=== PATIENT | female | born 1960 | race Caucasian/White ===

== ENCOUNTER 2020-02-09 21:27 | Inpatient (IN) ==
[2020-02-09] MEDS ORDERED: ASPIRIN ONE (21:44)
[2020-02-09] MEDS ORDERED: ASPIRIN PO ONE (21:48)
[2020-02-09 21:57] LABS: BE 1.8 mmoll (-3.0-3.0); BLOOD TYPE ARTERIAL; HCO3-(ACT) 26.1 mmoll (20.0-26.0); METHB 0.9 % (0.0-1.5); O2(CT) 18.1 mL/dL (15.0-23.0); PCO2(98.6) 37 mmHg (35-45); PO2(98.6) 54 mmHg (60-100); SAMPLE BLOOD; SAO2 92.1 % (95.0-100.0); THB 14.4 g/dL (11.5-17.4); pH(98.6) 7.45 (7.35-7.45)
[2020-02-09 22:00] LABS: ALLEN TEST YES; MODALITY ROOM AIR; O2HB 89.5 % (95.0-99.0)
[2020-02-09 22:01] LABS: BASO# 0.07 X1000 (0.0-0.2); BASO% 0.6 % (0.0-0.8); EOS# 0.11 X1000 (0.0-0.7); EOS% 0.9 % (0.0-10.0); HEMATOCRIT 42.5 % (37.0-47.0); HEMOGLOBIN 13.9 g/dL (12.0-16.0); IMM GRAN# 0.03 X1000 (0.0-0.04); IMM GRAN% 0.3 % (0.0-0.5); LYMPH# 1.73 X1000 (1.2-3.4); LYMPH% 14.6 % (20.5-51.1); MCH 28.4 PG (27-31); MCHC 32.7 g/dL (33-37); MCV 86.9 FL (81-99); MONO# 0.89 X1000 (0.11-0.59); MONO% 7.5 % (1.7-9.3); MPV 11.5 FL (7.4-10.4); NEUT# 9.03 X1000 (1.4-6.5); NEUT% 76.1 % (42.2-75.2); PLT 263 X1000 (130-400); RBC 4.89 XMIL (4.2-5.4); RDW 14.5 % (11.5-14.5); WBC 11.86 X1000 (4.8-10.8)
[2020-02-09 22:18] LABS: AGAP 16; ALBUMIN 4.4 g/dL (3.5-5.0); ALKALINE PHOSPHATASE 54 U/L (32-104); BUN 9 mg/dL (8-22); CALCIUM 9.1 mg/dL (8.8-10.2); CHLORIDE 99 mmol/L (98-107); CK PROFILE 146 U/L (24-173); COSMO 273; CREATININE 0.5 mg/dL (0.5-0.9); ESTIMATED GFR > 60; GLUCOSE 139 mg/dL (70-104); GOT 24 U/L (10-30); GPT 14 U/L (10-36); POTASSIUM 4.6 mmol/L (3.5-5.1); SODIUM 136 mmol/L (136-145); TCO2 21 mmol/L (25-35); TOTAL PROTEIN 7.5 g/dL (6.3-8.3)
[2020-02-09 22:21] LABS: INR 0.88; PROTIME 12.4 Seconds (11.0-16.0)
[2020-02-09 22:22] LABS: PTT 24.7 Seconds (22.3-41.8)
[2020-02-09] MEDS ORDERED: LOVENOX 1 MG/KG SUBQ ONE (22:39)
[2020-02-09] MEDS ORDERED: LOVENOX SUBQ ONE (22:43)
--- NOTE | 2020-02-09 23:54 | PROVIDER DOCUMENTATION ---
This chart was entered by Natalie Cartagena Scribe, acting as scribe for Malachi Mayers MD. HPI-Respiratory General - General Chief Complaint: Shortness of Breath Stated Complaint: SOB Time Seen by Provider: 02/09/20 21:44 Source: patient, family () Allergies/Adverse Reactions: Patient Allergies Allergy/AdvReac Type Severity Reaction Status Date / Time demeclocycline HCl * Allergy Intermediate Unknown Verified 02/09/20 21:35 [From Declomycin] Home Medications: Home Medication List Medication Instructions Recorded Confirmed Last Taken Type Ca Citrate/Mgox/Vit D3/B6/Min 1 each PO DAILY 05/08/13 02/09/20 11/20/14 12:00 History [Citracal Plus Tablet] Levothyroxine [Synthroid] 125 microgm PO DAILY 05/08/13 02/09/20 11/21/14 05:00 History Sertraline HCl [Zoloft] 100 mg PO DAILY 05/08/13 02/09/20 11/21/14 21:00 History Dexchlorpheniram/Phenylephrine 1 tab PO DAILY 02/09/20 02/09/20 Unknown History [Rymed Tablet] Estradiol [Estrace] 1 tab PO DAILY 02/09/20 02/09/20 Unknown History Fluticasone 50 Mcg Nasal [place] 1 spray INH DAILY 02/09/20 02/09/20 Unknown History [Flonase] Meloxicam 1 tab PO DAILY 02/09/20 02/09/20 Unknown History - History of Present Illness-Resp Nature of Presenting Problem: 59 yowf presents to [facility] via pov with . she reports she was walking down her hallway when she had acute onset of nausea and sob. pt fell to the ground on her hands and knees and her came and heped her to the recliner. pt denies vomiting and denies chest pain. pt recently returned from [place] 2 weeks prior to tonights episode. reports once in the chair she had another brief episode with the same sx. they checked her O2 at home and he says it was at 81% on RA and HR was in 150's Quality of Pain: reports: none Severity in ED: reports: moderate Onset/Duration: reports: just prior to arrival Timing: reports: improving Cough Quality/Degree: reports: no cough Episode Frequency: no prior episodes Current Respiratory Medication Therapy: Initiated see nurses note Associated Symptoms: reports: shortness of breath, other (nausea). denies: chest pain/soreness, cough Similar Symptoms Previously?: No Recently seen or treated by another doctor?: No Review of Systems - Adult - REVIEW OF SYSTEMS - ADULT Constitutional: denies: chills, fever Eyes: reports: no symptoms reported Ears, Nose, Mouth & Throat: reports: no symptoms reported Cardiovascular: denies: chest pain, edema, palpitations Respiratory: reports: see HPI, shortness of breath. denies: cough, wheezing Gastrointestinal: reports: nausea. denies: abdominal pain, diarrhea, vomiting Genitourinary: reports: no symptoms reported Musculoskeletal: reports: no symptoms reported Integumentary: reports: no symptoms reported Neurological: reports: no symptoms reported Psychiatric: reports: no symptoms reported Endocrine: reports: no symptoms reported Hematologic/Lymphatic: reports: no symptoms reported Allergic/Immunologic: reports: no symptoms reported All Other Systems: Reviewed and Negative Past History - Adult - PAST MEDICAL HISTORY-ADULT Review of Records: reports: Old Records Reviewed, Nursing Assessment Review, Medications Reviewed, Social history reviewed & non-contributory. Major Childhood Illnesses: reports: denies history Cardiovascular: reports: denies history Respiratory: reports: denies history Gastrointestinal: reports: denies history Obstetrical/Gynecological: reports: denies history Genitourinary: reports: denies history Musculoskeletal: reports: denies history Neurological: reports: denies history Psychiatric: reports: depression Endocrine/Immune: reports: thyroid disorder Other Conditions: reports: denies history - PRIOR SURGERIES/PROCEDURES Surgical/Procedure History: reports: other (thyroid removed) - IMMUNIZATION STATUS Childhood Immunizations: See Nurse Assessment Flu Vaccine: See Nurse Assessment - FAMILY HISTORY Family History: reviewed, not pertinent - SOCIAL HISTORY Smoking: denies Substance Use: denies Living Situation: family Physical Exam-General - PHYSICAL EXAM-ADULT Initial Vital Signs Reviewed: Yes - CONSTITUTIONAL General Appearance: appears well (nontoxic in appearance), alert, mild distress, obese - EYES Eyes: PERRL/EOMI, pink conjunctivae - HEAD, EARS, NOSE, MOUTH & THROAT HENMT: moist mucous membranes - NECK Neck: non-tender, full range of motion, supple, normal inspection - RESPIRATORY Respiratory: chest non-tender, lungs clear, respiratory distress (mild) - CARDIOVASCULAR Cardiovascular: normal peripheral pulses, tachycardia (125) - CHEST (BREASTS) Chest/Breast: deferred - GASTROINTESTINAL (ABDOMEN) Abdominal Exam: normal bowel sounds, non tender, soft, other (c/o nausea) - GENITOURINARY Female Genitalia/Pelvic Exam: deferred Rectal Exam: deferred Hemoccult Exam: deferred - LYMPHATIC Lymphatic: no adenopathy - MUSCULOSKELETAL Back Exam: no CVA tenderness, no vertebral tenderness Extremity: normal range of motion, non-tender, normal gait, normal inspection, normal capillary refill, pelvis stable - SKIN Integumentary: normal color, normal turgor, warm/dry - NEUROLOGIC Neurologic: grossly normal - PSYCHIATRIC Psych/Mental Status: normal mood/affect, normal thought content, normal thought process, oriented x 3 Progress - PLAN OF CARE/RESULTS Progress/Plan/Lab Results: Vital Signs - 8 hr 02/09/20 21:30 02/09/20 21:45 02/09/20 22:00 Temperature 97.9 F Pulse Rate 125 H 119 H 113 H Respiratory Rate 18 18 17 Blood Pressure 122/84 142/100 142/101 O2 Sat by Pulse Oximetry 91 L 89 L 92 L Laboratory Results - last 24 hr 02/09/20 02/09/20 02/09/20 21:04 21:04 21:04 WBC RBC Hgb Hct MCV MCH MCHC RDW Std Deviation Plt Count MPV Immature Gran % (Auto) Neut % (Auto) Lymph % (Auto) [place] % (Auto) Eos % (Auto) Baso % (Auto) Immature Gran # (Auto) Neut # (Auto) Lymph # (Auto) [place] # (Auto) Eos # (Auto) Baso # (Auto) PT INR PTT (Actin FS) D-Dimer, Quantitative Specimen Type Sample Site pH pCO2 pO2 HCO3 Base Excess Oxyhemoglobin ABG O2 Sat (Calculated) ABG O2 Saturation ABG Carboxyhemoglobin ABG Methemoglobin Jett Test A-a O2 Difference Total Hemoglobin Lactate Blood Gas Modality FiO2 % Sodium 136 Potassium 4.6 Chloride 99 Carbon Dioxide 21 L Anion Gap 16 BUN 9 Creatinine 0.5 Estimated GFR/1.73 m2 > 60 BUN/Creatinine Ratio 18 Glucose 139 H Calculated Osmolality 273 Calcium 9.1 Total Bilirubin 0.30 AST 24 ALT 14 Alkaline Phosphatase 54 Creatine Kinase 146 Troponin T High Sens 450 H* Total Protein 7.5 Albumin 4.4 Globulin 3.0 Albumin/Globulin Ratio 1.0 Plasma Lactate 1.6 02/09/20 02/09/20 02/09/20 21:04 21:04 21:42 WBC 11.86 H RBC 4.89 Hgb 13.9 Hct 42.5 MCV 86.9 MCH 28.4 MCHC 32.7 L RDW Std Deviation 14.5 Plt Count 263 MPV 11.5 H Immature Gran % (Auto) 0.3 Neut % (Auto) 76.1 H Lymph % (Auto) 14.6 L [place] % (Auto) 7.5 Eos % (Auto) 0.9 Baso % (Auto) 0.6 Immature Gran # (Auto) 0.03 Neut # (Auto) 9.03 H Lymph # (Auto) 1.73 [place] # (Auto) 0.89 H Eos # (Auto) 0.11 Baso # (Auto) 0.07 PT 12.4 INR 0.88 PTT (Actin FS) 24.7 D-Dimer, Quantitative 10.75 H Specimen Type ARTERIAL Sample Site R BRACHIAL pH 7.45 pCO2 37 pO2 54 L HCO3 26.1 H Base Excess 1.8 Oxyhemoglobin 89.5 L* ABG O2 Sat (Calculated) 18.1 ABG O2 Saturation 92.1 L ABG Carboxyhemoglobin 2.00 ABG Methemoglobin 0.9 Jett Test YES A-a O2 Difference 49.0 Total Hemoglobin 14.4 Lactate 1.50 Blood Gas Modality ROOM AIR FiO2 % 21.0 Sodium Potassium Chloride Carbon Dioxide Anion Gap BUN Creatinine Estimated GFR/1.73 m2 BUN/Creatinine Ratio Glucose Calculated Osmolality Calcium Total Bilirubin AST ALT Alkaline Phosphatase Creatine Kinase Troponin T High Sens Total Protein Albumin Globulin Albumin/Globulin Ratio Plasma Lactate Orders Category Date Time Status Cardiac Monitoring NOW Care 02/09/20 21:42 Active IV Insertion NOW Care 02/09/20 21:42 Completed Isolation Precautions Setup NOW Care 02/09/20 21:51 Active NEWS Score >or=5:Order NEWS Bundle S.O. NOW Care 02/09/20 21:34 Active Notify Provider of NEWS Score NOW Care 02/09/20 21:42 Active CHEST-1 VIEW [RAD] Stat Exams 02/09/20 21:42 Taken CTA [CT ANGIOGRM PULMONARY ARTERIES] [CT] Stat Exams 02/09/20 22:39 Taken ABG [RESP] Routine Lab 02/09/20 21:42 Completed BLOOD CULTURE [BLDCUL] Stat Lab 02/09/20 22:02 Ordered CBC WITH DIFF [HEME] Stat Lab 02/09/20 21:04 Completed CK PROFILE [SP CHEM] Stat Lab 02/09/20 21:04 Completed COMPREHENSIVE METABOLIC PANEL [CHEM] Stat Lab 02/09/20 21:04 Completed D-DIMER [COAG] Stat Lab 02/09/20 21:04 Completed LACTATE, PLASMA [CHEM] Lab 02/10/20 00:45 Uncollected LACTATE, PLASMA [CHEM] Lab 02/10/20 03:45 Uncollected LACTATE, PLASMA [CHEM] Q3H Lab 02/09/20 21:04 Completed PROTIME WITH INR [COAG] Stat Lab 02/09/20 21:04 Completed PTT [COAG] Stat Lab 02/09/20 21:04 Completed TROPONIN T HIGH SENSITIVITY Stat Lab 02/09/20 21:04 Completed TROPONIN T HIGH SENSITIVITY Stat Lab 02/09/20 23:30 Ordered URINALYSIS W/POSS RFLX CULT [URINALYSIS] Stat Lab 02/09/20 21:42 Uncollected Aspirin Med 02/09/20 21:44 Discontinued 325 mg .ROUTE .STK-MED ONE Aspirin Med 02/09/20 21:48 Discontinued 325 mg PO NOW ONE Enoxaparin [Lovenox] Med 02/09/20 22:43 Discontinued 80 mg SUBQ NOW ONE O2 Per Protocol Stat Oth 02/09/20 21:42 Active Result Diagrams: 02/09/20 21:04 02/09/20 21:04 - REASSESSMENT Reassessment #1 Time Reassessed: 22:30 Status: unchanged Reassessment Comment: dr mayers at bedside - EKG 1 Time of EKG reading by physician:: 21:39 EKG Read and Signed by:: Malachi Mayers EKG Interpretation (*Must complete 3 of following elements*): Abnormal Rate: 121 Rhythm: sinus tachycardia Reese: normal QRS: normal PA Interval: normal Comments: nonspecific ST abnormality 2 Time of EKG reading by physician:: 22:31 EKG Read and Signed by:: Malachi Mayers EKG Interpretation (*Must complete 3 of following elements*): Abnormal Rate: 117 Rhythm: sinus tachycardia Reese: normal QRS: normal PA Interval: normal ST Wave: normal Comments: cannot rule out anteior infarct, age undetemined - XRAY 1 XRAY: Bilateral XRAY Study: Chest Impression: See EMR Report - CT/MRI 1 CT Study: Angiogram Impression: See EMR Report - CONSULTS/PCP/HOSPITALIST Notification #1 *Consult/PCP/Hospitalist*: dr clark cardio Time Discussed: 22:33 Reason/Comments: phone consult #2 Consult: dr clark cardio Time Discussed: 23:43 Reason/Comments: giving results of ct #3 Consult: hospitalist @ [facility] Consult Disposition: Admit Departure - Departure Date of Disposition Decision: 02/09/20 Time of Disposition Decision: 23:49 DIAGNOSIS: Multiple pulmonary emboli Disposition: [facility] 02 Certified Medical Emergency: Emergent Condition: Serious Referrals and Follow-Ups: Fred Mora MD [Primary Care Provider] - - Critical Care Note This patient required my direct & personal management of CC.: Yes Total Time (mins): 37 Critical Care Statement: This patient required my direct personal management to treat or rule out processes, the absence of which, could potentiallly result in sudden, clinically significant life or limb threatening deterioration. Attestation - Physician/ GABY Attestation Patient care was provided by Advanced Practice Provider:: No The physician spent face to face time with patient:: Yes Advanced Practice Provider documentation review:: Supervising physician onsite and consulted in the evaluation and care of this patient. The physician did have a face to face encounter with the patient. This chart was documented by the indicated scribe, (Natalie Cartagena Scribe) and accurately reflects the services I performed and decisions made by me, Malachi Mayers MD, as attested by the provider's signature.
[2020-02-10] MEDS ORDERED: NS 1,000 ML IV SCH (02:00)
[2020-02-10 02:26] LABS: URINE SOURCE CLEAN CATCH
[2020-02-10 02:39] LABS: BILIRUBIN URINE NEGATIVE (NEGATIVE); BLOOD URINE TRACE (NEGATIVE); GLUCOSE URINE NEGATIVE (NEGATIVE); KETONE URINE NEGATIVE (NEGATIVE); LEUKOCYTES URINE NEGATIVE (NEGATIVE); NITRITE URINE NEGATIVE (NEGATIVE); PROTEIN URINE TRACE mg/dL (NEGATIVE); TURBIDITY URINE CLEAR (CLEAR); UROBILINOGEN URINE NORMAL (NORMAL)
[2020-02-10 02:40] LABS: UR EPITHELIAL CELLS <10 /HPF (<10); URINE BACTERIA NEGATIVE /HPF; URINE RBC <10 /HPF (<10); URINE WBC <10 /HPF (<10)
[2020-02-10 02:59] LABS: COLOR STRAW
--- NOTE | 2020-02-10 03:30 | HISTORY AND PHYSICAL ---
PRIMARY CARE PHYSICIAN: Fred Mora MD. REASON FOR ADMISSION: Acute shortness of breath yesterday. HISTORY OF PRESENT ILLNESS: Ms. Suki Davalos is a 59-year-old white woman with past medical history of seasonal allergic rhinitis, iatrogenic hypothyroidism, who is on hormone replacement therapy. She comes in today because yesterday evening while walking to a different part of her house, she said she became profoundly nauseous and immediately acutely short of breath. As a result of this, she did just slowly slumped to the floor but never passed out. When she realized she could not catch her breath, she called her , who after 10 minutes got her up and assisted her back to chair. Her O2 saturation was in the low 80s. Heart rate is 130. It took about another 30 minutes for the patient's breathing to improve. The patient did travel 1-1/2 weeks ago to [place], but denies any trauma to her legs, any redness or pain in her legs. No cough, no fever, no chills. No chest pain. She does admit to having palpitations during the episodes of dyspnea. Denies any PND, orthopnea. No lightheadedness. Denies any weight loss. REVIEW OF SYSTEMS: Twelve system review was done, positive findings per HPI. Her did notice that when he 1st saw her on the floor she had a bluish-tinge to her color. ALLERGIES: Demeclocycline. HOME MEDICATION: Estradiol 1 mg daily, Flonase 1 puff daily, meloxicam 50 mg daily, dexchlorpheniramine-phenylephrine 1 tablet daily, Zoloft 100 mg daily, Synthroid 125 mcg daily. SURGICAL HISTORY: Patient reports thyroidectomy for thyroid cancer and total hysterectomy. FAMILY HISTORY: No history of blood clots or cancer, but positive history of heart disease in father. SOCIAL HISTORY: Only drinks alcohol socially. Otherwise, . Does not use drugs or smoke. LAB WORK: Patient's D-dimer was about 10. White count 11,000, hemoglobin and hematocrit 13 and 42, platelets 263,000, with 76 neutrophils. Glucose 139. Troponin 397 with normal CK. Lactate normal. PTT normal. Blood gas 7.45, pCO2 of 37, PO2 of [address] angiogram showed bilateral pulmonary emboli. PHYSICAL EXAMINATION: GENERAL: Middle-aged white female who is not in acute distress. She is alert and oriented x3. Normal mood and affect. VITAL SIGNS: Blood pressure is 131/89, heart rate 103, down from 150 in the ER; respiratory rate is 18, temperature is 98.1, saturation is 95% on 3 L. HEENT: Head is normocephalic, atraumatic. Eyes, GINA, EOMI. Anicteric, not pale. ENT oropharyngeal exam is grossly normal. Some cyanosis. NECK: Supple. No JVD or carotid bruit. No thyromegaly. CHEST: Clear when auscultated in both lung garcia. CARDIOVASCULAR: First and 2nd sounds heard. No gallops, murmurs, or rubs. Rhythm is regular. ABDOMEN: Full, soft, nontender. No masses, megaly. Bowel sounds are normal. RECTAL: Not done. EXTREMITIES: No edema, clubbing or cyanosis. Distal pulse volumes, regular, full and symmetrical. NEUROLOGICAL: No gross focal deficits. SKIN: Intact. No breakdown, lesions or erythema. MUSCULOSKELETAL: Grossly normal. ASSESSMENT: 1. Bilateral pulmonary emboli. 2. Acute respiratory failure secondary to #1. 3. Elevated troponin secondary to right heart strain. 4. Hypothyroidism. PLAN: Will discontinue estradiol, which I think could be the primary delivery route driver behind this episode of PTE. She did have a [address] to [place], that may play a small part in this. Venous Doppler studies will be done. Start patient on enoxaparin and will continue this with transition to oral agents per choice of Dr. Mora. No role for thrombophilia in this patient due to her age and also the fact that she has no family history of PTE. Discontinue the meloxicam due to the fact that she is on blood thinners. The patient will need to be evaluated for home O2 prior to discharge. cc: MD Fred Rodrigues MD
--- NOTE | 2020-02-10 06:27 | Diag Imaging Result Doc PS360 ---
CHEST-1 VIEW - 02/09/2020 INDICATION: SOB COMPARISON: 05/08/2013 FINDINGS: The lungs are normally expanded and clear. Heart size and mediastinal contours are normal. No pneumothorax or pleural effusion. IMPRESSION: Negative exam. Electronically signed by Juan Omalley 02/10/2020 6:24 AM
[2020-02-10] MEDS ORDERED: SYNTHROID PO SCH (07:00)
--- NOTE | 2020-02-10 07:15 | Diag Imaging Result Doc PS360 ---
EXAM: CT ANGIOGRM PULMONARY ARTERIES 02/09/2020 HISTORY: SOB r/o PTE TECHNIQUE: This exam was performed using automated exposure control, adjustment of mA or kV according to patient size, and/or use of iterative reconstruction technique. COMMENT: 3-D MIPS were performed. There are no previous studies available for comparison. There are pulmonary emboli in both main pulmonary arteries with saddle emboli across the superior and inferior divisions bilaterally. There are some peripheral emboli in both lower lobes and both upper lobes particularly the left upper lobe which is relatively oligemic. The aorta is normal in caliber without evidence of dissection. There is some hypertrophy of the left ventricle. There is no evidence of acute pulmonary parenchymal disease. There are some spondylotic changes in the thoracic spine. There is no evidence of acute bony abnormality. There are bilateral breast implants. IMPRESSION: Extensive bilateral pulmonary emboli. Electronically signed by Manuel Bernard 02/10/2020 7:12 AM
--- NOTE | 2020-02-10 10:40 | EKG Report ---
Test Performed on : 02/09/2020 10:31:34 PM Test Reason : ER Blood Pressure : / mmHG Vent. Rate : 117 BPM Atrial Rate : 117 BPM P-R Int : 130 ms QRS Dur : 082 ms QT Int : 334 ms P-R-T Axes : 056 058 017 degrees QTc Int : 465 ms Sinus tachycardia. Cannot rule out Anterior infarct , age undetermined Abnormal ECG When compared with ECG of 09-FEB-2020 21:39, (Unconfirmed) No significant change was found Unconfirmed Result
--- NOTE | 2020-02-10 10:41 | EKG Report ---
Test Performed on : 02/09/2020 9:39:16 PM Test Reason : ER Blood Pressure : / mmHG Vent. Rate : 121 BPM Atrial Rate : 121 BPM P-R Int : 136 ms QRS Dur : 090 ms QT Int : 314 ms P-R-T Axes : 066 072 041 degrees QTc Int : 445 ms Sinus tachycardia. Nonspecific ST abnormality Abnormal ECG No previous ECGs available Unconfirmed Result
[2020-02-10] MEDS: LOVENOX SUBQ SCH ×2 (11:34→23:27)
[2020-02-10] MEDS: ZOLOFT PO SCH (11:34)
[2020-02-10] MEDS: FLONASE NAS SCH (11:34)
[2020-02-10] MEDS: ELIQUIS PO SCH ×2 (11:34→20:08)
--- NOTE | 2020-02-10 14:13 | ECHO REPORT ---
ORDER DATE: 02/10/2020 INDICATION: Pulmonary emboli, DVT, shortness of breath. FINDINGS: 1. Right atrium appears enlarged. 2. Mild tricuspid regurgitation. RV systolic pressure of 42 suggesting pulmonary hypertension. 3. The right ventricle is dilated with reduced systolic function. There is flattening of the interventricular septum suggesting right ventricular pressure and volume overload. 4. No significant pulmonic insufficiency. 5. Mild left atrial enlargement with a volume index of 30. 6. No mitral prolapse. Mild mitral regurgitation. 7. Normal LV size, end-diastolic dimension of 3.8 cm. Normal wall thicknesses with a posterior and interventricular septal wall thickness of 1.0 cm each. Normal LV systolic function with an estimated EF of 65%. Indeterminate diastolic function. 8. Aortic valve opens well, trileaflet, no evidence of stenosis or insufficiency. 9. Aorta appears normal in visualized segments. 10. No pericardial effusion seen. cc: MD Fred Trevino MD
--- NOTE | 2020-02-10 15:44 | HEMO/ONC CONSULTATION ---
DATE: 02/10/2020 NARRATIVE SUMMARY: The patient was admitted last night with acute DVT and pulmonary thromboembolism. The patient was seen this morning. Vital signs have stabilized and she expressed no discomfort. She did require oxygen to feel comfortable. 1. Venous Dopplers of lower extremities did show blood clot in the left calf and behind the left knee. 2. Echocardiogram showed right ventricular strain with elevated right-sided pressures. Left ventricular function was normal. 3. Coagulation studies have been sent off but results are not back yet. 4. I discussed with the patient the plan going forward to continue oxygen, anticoagulation, and try and get her in some MARLEY hose. She agreed with this plan. cc: Fred Mora MD
--- NOTE | 2020-02-10 16:54 | Extremity Venous Study ---
PROCEDURE NAME: Venous U/S Bilateral Legs - 02/10/2020 PROCEDURE: Bilateral lower extremity venous duplex and color flow imaging study using a 2[employer] Vivid E9 ultrasound system with a 9L-D transducer. REFERRING PHYSICIAN: Dr. Olmstead. PLASMA CUTTING MACHINE OPERATOR: [facility] RVT. INDICATIONS: Pulmonary embolus, rule out deep venous thrombosis. FINDINGS: The right common femoral vein and its branches, deep and superficial femoral veins were satisfactorily imaged. They had flow through them and were compressible. Right popliteal vein and the deep veins below the right knee were all compressible and had flow through them. The superficial veins of the right lower extremity were compressible throughout their length. The left common femoral vein was also satisfactorily imaged. It was compressible and had flow through it. There was an acute deep venous thrombosis involving the left superficial femoral vein and extending distally into the left popliteal vein and the small veins below the left knee. The superficial veins of the left lower extremity were compressible. INTERPRETATION: Long segment acute deep venous thrombosis involving the deep veins of the left lower extremity. cc: MD Lamine Wu MD Timothy P. Weirich, MD
[2020-02-11 06:40] LABS: BASO# 0.06 X1000 (0.0-0.2); BASO% 0.9 % (0.0-0.8); EOS# 0.17 X1000 (0.0-0.7); EOS% 2.5 % (0.0-10.0); HEMATOCRIT 38.4 % (37.0-47.0); HEMOGLOBIN 12.4 g/dL (12.0-16.0); LYMPH# 1.77 X1000 (1.2-3.4); LYMPH% 26.3 % (20.5-51.1); MCH 28.5 PG (27-31); MCHC 32.3 g/dL (33-37); MCV 88.3 FL (81-99); MONO# 0.59 X1000 (0.11-0.59); MONO% 8.8 % (1.7-9.3); MPV 11.5 FL (7.4-10.4); NEUT# 4.15 X1000 (1.4-6.5); NEUT% 61.5 % (42.2-75.2); PLT 221 X1000 (130-400); RBC 4.35 XMIL (4.2-5.4); RDW 14.5 % (11.5-14.5); WBC 6.74 X1000 (4.8-10.8)
[2020-02-11] MEDS: SYNTHROID PO SCH (07:02)
[2020-02-11 07:06] LABS: AGAP 9; BUN 8 mg/dL (8-22); CALCIUM 8.6 mg/dL (8.8-10.2); CHLORIDE 104 mmol/L (98-107); COSMO 276; CREATININE 0.7 mg/dL (0.5-0.9); ESTIMATED GFR > 60; GLUCOSE 100 mg/dL (70-104); POTASSIUM 3.9 mmol/L (3.5-5.1); SODIUM 139 mmol/L (136-145); TCO2 26 mmol/L (25-35)
--- NOTE | 2020-02-11 10:45 | EKG Report ---
Test Performed on : 02/11/2020 10:41:14 AM Test Reason : Code blue Blood Pressure : / mmHG Vent. Rate : 108 BPM Atrial Rate : 108 BPM P-R Int : 138 ms QRS Dur : 096 ms QT Int : 338 ms P-R-T Axes : 050 064 113 degrees QTc Int : 452 ms Sinus tachycardia. Nonspecific ST and T wave abnormality Abnormal ECG When compared with ECG of 09-FEB-2020 22:31, (Unconfirmed) Nonspecific T wave abnormality, worse in Anterolateral leads Confirmed by Satly Kebede MD ([id number]) on 02/12/2020 2:21:04 PM
[2020-02-11 10:59] LABS: ALLEN TEST NO; BE -2.9 mmoll (-3.0-3.0); BLOOD TYPE ARTERIAL; HCO3-(ACT) 22.6 mmoll (20.0-26.0); METHB 0.8 % (0.0-1.5); O2(CT) 18.6 mL/dL (15.0-23.0); O2HB 96.3 % (95.0-99.0); PCO2(98.6) 38 mmHg (35-45); PO2(98.6) 96 mmHg (60-100); SAMPLE BLOOD; SAO2 98.5 % (95.0-100.0); THB 13.7 g/dL (11.5-17.4); pH(98.6) 7.37 (7.35-7.45)
[2020-02-11 11:01] LABS: MODALITY NRB
--- NOTE | 2020-02-11 11:02 | Diag Imaging Result Doc PS360 ---
EXAM: CHEST-PORTABLE HISTORY: code blue TECHNIQUE: Single view COMPARISON: 02/09/2020 FINDINGS: The lungs are well expanded. The heart is not enlarged. The vessels are not distended. There are no infiltrates. No effusion identified. IMPRESSION: Negative exam. Electronically signed by Michela Ambrosio 02/11/2020 11:00 AM
--- NOTE | 2020-02-11 11:38 | PROGRESS NOTE ---
DATE: 02/11/2020 SUBJECTIVE: The patient was admitted with a submassive pulmonary emboli with DVT in the left lower extremity at and below the knee. She was doing quite well, was maintaining oxygen saturation this morning. We had a long talk about discharge and plans going forward. The last remaining bit of information that I needed prior to discharge was a room air oxygen saturation and with walking. I had to call Respiratory Therapy for that and at the time that they came in, the patient stated she needed to get up to go to the restroom. She ambulated in there but when she came back, said she felt dizzy and weak and basically collapsed on the bed with Respiratory present. She was briefly unresponsive but returned to function with some Ambu. She did not lose her pulse. There were no compressions or drugs given but a code was called. We arranged transfer to the ICU. When we got to the ICU, the patient complained of weakness in her left arm. NEUROLOGIC EXAMINATION: Showed a mild to moderate focal motor neurological deficit in the left hand and elbow. The remainder of her neurological exam including other extremities and cranial nerves was normal. She was alert, oriented, and mentating appropriately. She was communicative and her speech was clear. PLAN: The patient will remain in the ICU. We are going to get a CT scan of the brain since she has been on a blood thinner at this point. I have consulted Cardiology due to her echocardiographic results showing right ventricular strain and I am going to consult Pulmonary to see if we need to re-image the patient's chest. Obviously, plans for discharge are on hold and she will likely be here through the weekend at a higher level of care than previously. Overall, I am leaning towards recurrence of pulmonary embolism or simple hypoxemia and RV strain when she got up to go to the restroom. Hopefully, our consultants will help us figure this out. cc: Fred Mora MD
--- NOTE | 2020-02-11 12:43 | Diag Imaging Result Doc PS360 ---
EXAM: CT HEAD W/O CONTRAST HISTORY: left sided weakness TECHNIQUE: CT head without contrast COMPARISON: 05/08/2013 FINDINGS: No parenchymal hemorrhage. No epidural or subdural hematoma. No subarachnoid hemorrhage. No mass identified on this noncontrasted exam. No hydrocephalus. No sinus opacification. IMPRESSION: No hemorrhage. Negative brain CT without contrast. This exam was performed using automated exposure control, adjustment of mA or kV according to patient size, and/or use of iterative reconstruction technique. Electronically signed by Micheal Ambrosio 02/11/2020 12:41 PM
[2020-02-11] MEDS: FLONASE NAS SCH (13:43)
[2020-02-11] MEDS: ZOLOFT PO SCH (13:43)
[2020-02-11] MEDS: TYLENOL PO PRN (14:23)
--- NOTE | 2020-02-11 14:55 | CARDIOLOGY CONSULTATION ---
DATE: 02/11/2020 HISTORY OF PRESENT ILLNESS: Cardiology was consulted. Patient is admitted with pulmonary embolism. She had been doing well. This morning, she had taken her oxygen off and went to the restroom. She ambulated in there and when she came back she felt dizzy and basically collapsed. CAT was called. She was briefly unresponsive. Patient was transferred to ICU. The patient states she became short of breath did not complain of any chest pain. She had a CT scan subsequently done of her head which did not reveal any obvious bleed. She is resting comfortably at the present time. Denies any chest pain. She was admitted for sudden onset of acute shortness of breath and was nauseous as well. This was on the day of admission on 02/09/2020. When she came to the emergency room she had oxygen saturations in the 80s, heart rate of 130. She recently had traveled about 1- 1/2 weeks back to [place]. She denies any recent trauma or surgeries. No fevers or chills. REVIEW OF SYSTEMS: 14 point review of system was done. GI System: She was nauseous when she came in, but no hematemesis or melena. Central nervous system: There is no focal weakness to suggest a CVA, TIA. System: There is no dysuria or hematuria. Central nervous system: No focal weakness to suggest a CVA, TIA. ALLERGIES: Demeclocycline. PAST MEDICAL HISTORY: Seasonal allergies. Hypothyroidism. Hormone replacement therapy. HOME MEDICATIONS: At home she takes estradiol, Flonase, meloxicam, Synthroid 125, Zoloft 100. PAST SURGICAL HISTORY: Thyroidectomy for thyroid cancer and total hysterectomy. FAMILY HISTORY: No history of blood clots or cancer. SOCIAL HISTORY: There is no history of alcohol or tobacco abuse. PHYSICAL EXAMINATION: Cardiovascular: Blood pressure was 138/98, first and second heart sounds were heard. There was no S3 gallop. Respiratory: Normal air entry. There were no crepitations. Abdomen: Soft, nontender. There was no guarding or rigidity. Bowel sounds were heard. Central nervous system: Alert, oriented, moving all 4 extremities. Detailed central nervous system examination not performed. HEENT: Atraumatic, normocephalic. Pupils were equal and reacting to light. Neck: Examination of her neck revealed no lymphadenopathy. LABORATORY EXAMINATION: WBC 11.84, hemoglobin 13.9, hematocrit 42.5, platelet count of 263,000. Protein-CS, antithrombin 3, pending. Sodium 139, potassium 3.9, BUN 8, creatinine 0.7. Troponin T abnormal at 397 and 112. Liver function tests were unremarkable. D-dimer 10.75. She had a pulmonary arteriogram done which revealed extensive bilateral pulmonary emboli; with a saddle emboli across the superior and inferior bilaterally. Echocardiogram revealed normal left ventricular systolic function, right ventricle was dilated with reduced systolic function. There is flattening of the interventricular septum suggesting of right ventricular pressure overload. Electrocardiogram revealed sinus tachycardia. ASSESSMENT AND PLAN: 1. Ms. Suki Davalos is a 59-year-old lady with history of thyroid cancer status post thyroidectomy, hysterectomy on hormone replacement therapy. Hypothyroidism is admitted with shortness of breath and has bilateral pulmonary embolism. This morning she collapsed when she went to the restroom without the oxygen. Since then she has been transferred here. She denies any chest pain. Heart rhythm has been stable. CT scan of her head was done and there was no obvious intracranial pathology. Recommendations: Continue with current management. She has been on Eliquis 10 b.i.d. for her bilateral pulmonary embolism. 2. Troponin abnormal secondary to pulmonary embolism. 3. She has had right ventricular dysfunction on the echocardiogram, she has bilateral extensive pulmonary emboli. Currently, her vital signs are stable. I have not made any other changes or recommendations at the present time. 4. She has deep venous thrombosis with long segment of acute deep venous thrombosis on the left deep vein of the lower extremity. 5. Hypothyroidism continue with her thyroid supplement. Thank you for the consult. We will follow hospital course. cc: MD Fred Hull MD MTDD
[2020-02-11 15:37] LABS: URINE SOURCE CATH
[2020-02-11 15:40] LABS: BILIRUBIN URINE NEGATIVE (NEGATIVE); BLOOD URINE TRACE (NEGATIVE); COLOR YELLOW; GLUCOSE URINE NEGATIVE (NEGATIVE); KETONE URINE NEGATIVE (NEGATIVE); LEUKOCYTES URINE NEGATIVE (NEGATIVE); NITRITE URINE NEGATIVE (NEGATIVE); PH URINE 6.5; PROTEIN URINE NEGATIVE (NEGATIVE); SP GRAVITY URINE 1.009; TURBIDITY URINE CLEAR (CLEAR); UR EPITHELIAL CELLS <10 /HPF (<10); URINE BACTERIA NEGATIVE /HPF; URINE RBC <10 /HPF (<10); URINE WBC <10 /HPF (<10); UROBILINOGEN URINE NORMAL (NORMAL)
--- NOTE | 2020-02-11 17:14 | VASCULAR LAB ---
PROCEDURE NAME: Arterial Bilateral Arms - 02/11/2020 STUDY: Bilateral upper extremity segmental Doppler exam. INDICATION: Left arm numbness. VISE HAND: Debbie REQUESTING PHYSICIAN: Fred Mora MD FINDINGS: Brachial pressure on the right is 149 and on the left 73. Ulna on the right is 147 and on the left 53. Radial artery on the right is 146 and on the left undetectable. Digit pressure index finger on the right is 125 and on the left 43. The ulnar index on the right is 0.99 and on the left 0.36. The digit index on the left is 0.29 and on the right 0.84. IMPRESSION: There is blunting of the waveforms throughout the left upper extremity but relatively normal appearing waveforms on the right. The radial artery is occluded. Would recommend correlation with angiography. cc: MD Fred Rod MD
--- NOTE | 2020-02-11 18:22 | Diag Imaging Result Doc PS360 ---
EXAM: CT ANGIOGRAM THORAX HISTORY: left upper extremity ischemia TECHNIQUE: CT chest with intravenous contrast. Arteriogram protocol with MIP images. COMPARISON: None. FINDINGS: There are bilateral main pulmonary artery emboli with emboli extending into the proximal pulmonary branches bilaterally. No aortic aneurysm or dissection. No cardiomegaly. No consolidation. No bronchiectasis. No lung mass identified. No enlarged lymph nodes. IMPRESSION: Bilateral pulmonary emboli This report was discussed with Dr. Tyron Cameron on 02/11/2020 at 6:15 PM and was readback. This exam was performed using automated exposure control, adjustment of mA or kV according to patient size, and/or use of iterative reconstruction technique. Electronically signed by Micheal Ambrosio 02/11/2020 6:20 PM
[2020-02-11] MEDS ORDERED: DIPRIVAN 1% ONE (18:23)
[2020-02-11] MEDS ORDERED: XYLOCAINE-MPF 2% ONE (18:24)
[2020-02-11] MEDS ORDERED: QUELICIN (DOSE) ONE (18:24)
[2020-02-11] MEDS ORDERED: VERSED ONE (18:27)
[2020-02-11] MEDS ORDERED: FENTANYL ONE (18:27)
--- NOTE | 2020-02-11 18:27 | Diag Imaging Result Doc PS360 ---
EXAM: CT ANGIOGRAM UPPER EXT - LEFT HISTORY: left upper extremity ischemia TECHNIQUE: CT angiogram left upper extremity with intravenous contrast. Arteriogram protocol with MIP images. COMPARISON: None. FINDINGS: Normal aortic arch. Normal takeoff of the brachiocephalic artery, left common carotid artery, and left subclavian artery. Normal flow in the left axillary artery. There is thrombus occluding the brachial artery. A small amount of contrast is present distally apparently in the radial artery. No soft tissue mass. No extrinsic compression upon the arteries in the left upper extremity. IMPRESSION: Brachial artery thrombosis. This report was discussed with Dr. Tyron Cameron on 02/11/2020 at 6:15 PM and was readback. Electronically signed by Micheal Ambrosio 02/11/2020 6:25 PM
[2020-02-11] MEDS ORDERED: XYLOCAINE 1%/EPI 1:100,000 ONE (18:31)
[2020-02-11] MEDS ORDERED: HEPARIN ONE (18:31)
[2020-02-11] MEDS ORDERED: NS 1,000 ML ONE (18:32)
--- NOTE | 2020-02-11 18:50 | PULMONOLOGY PROGRESS NOTE ---
DATE: 02/11/2020 The patient underwent a CT angiogram of the chest and the runoff to the left upper extremity that confirmed thrombosis of the brachial artery on the left. She had slight reconstitution runoff via the ulnar artery but no significant visualization of the radial artery. Extensive bilateral pulmonary emboli were again noted with saddle type thrombus on the left. Her hand remains functional. It is intermittently painful, but neurologically intact. We have had a long discussion with the patient, the patient's , Dr. Mora and Dr. Thomas, our anesthesiologist. She obviously is high risk for anesthetic. Due to recent anticoagulation a regional block is not an option and unfortunately she had p.o. intake this afternoon prior to these developments that limits our ability to perform conscious sedation. Given all these findings, we elected to proceed to operating room for general anesthetic and thromboembolectomy left upper extremity. We discussed risks of bleeding, infection, distal ischemia of the hand, possibility of recurrent thrombosis. We will heparinize her during the procedure and continue heparin postoperatively as this seems to have developed while on her Eliquis. It is unclear that if this is some [id number] passage of the thrombus from her leg or if this is a true idiopathic arterial thrombus. She is not a smoker she has had no vascular procedures and this is somewhat of an unusual case. I have reviewed the films Dr. Ambrosio, our radiologist, who agrees a long segment brachial artery thrombus. There is no evidence of more proximal dissection. The aortic arch and subclavian axillary arteries all appear normal. We are proceeding emergently to the operating room for management of this at this time. cc: MD Fred Rod MD [facility]ITALBecky
[2020-02-11] MEDS ORDERED: ZEMURON ONE (18:51)
[2020-02-11] MEDS ORDERED: HEPARIN (DOSE) ONE (18:57)
[2020-02-11] MEDS ORDERED: NEO-SYNEPHRINE ONE (18:58)
[2020-02-11] MEDS ORDERED: SODIUM CHLORIDE 0.9% 10 ML ONE (18:58)
--- NOTE | 2020-02-11 19:01 | PULMONOLOGY CONSULTATION ---
DATE: 02/11/2020 REASON FOR CONSULTATION: Pulmonary embolism. HISTORY OF PRESENT ILLNESS: Ms. Davalos is a 59-year-old white female on estrogen replacement therapy, who was walking down her hallway and developed acute shortness of breath. The patient's oxygen saturation was 81% and heart rate was 150 when checked at home. The patient was brought to the emergency room, and CT pulmonary angiogram performed 02/09/2020 revealed extensive bilateral emboli with a saddle component. Venous Doppler of the lower extremities was performed, which revealed acute deep vein thrombosis involving the left lower extremity. Echocardiogram did reveal a right ventricular systolic pressure of 42, with dilation consistent with strain of the right ventricle. The patient did ambulate this morning and suddenly became short of breath and cyanotic. She was ventilated with an Ambu bag for transient loss of consciousness. She became awake and alert and was transferred to the ICU. She reported some pain in the left hand and weakness in the left arm upon arrival, but this has resolved. She underwent CT scan of the head which was negative for acute change. Arterial Doppler reveals occlusion of the radial artery, and surgical consultation has been requested. PAST MEDICAL HISTORY: 1. Thyroid cancer, with thyroidectomy. 2. Status post hysterectomy. 3. History of breast augmentation. SOCIAL HISTORY: The patient is a never-smoker. FAMILY HISTORY: Negative for heart disease, recurrent blood clots or malignancy. REVIEW OF SYSTEMS: As noted in the HPI, but otherwise negative. PHYSICAL EXAMINATION: Physical exam reveals a well-developed, well-nourished white female, who is resting comfortably in her bed and in no distress. Blood pressure 122/99, heart rate 105, respiratory rate 22, oxygen saturation 100%. HEENT: Pupils are equal and reactive. Oropharynx appears clear. Neck is supple. Chest reveals good air entry bilaterally without wheezing or rhonchi. Cardiac exam: S1, S2 without definite splitting or gallops. Abdomen is soft. Both hands were evaluated. Temperature appears to be equal. Capillary refill present. Diminished pulse in left radial artery. IMPRESSION: A 59-year-old with bilateral pulmonary emboli. The patient had an event earlier this morning with ambulation to the bathroom, and may have a patent foramen ovale with a paradoxical embolus. Currently she is hemodynamically stable. She is currently on half-dose of Eliquis for pulmonary embolus, and Lovenox. RECOMMENDATIONS: 1. Increase Eliquis to full dosing, which would be 10 mg b.i.d. 2. Discontinue Lovenox. 3. Agree with hypercoagulable workup, but suspect her only major risk is due to estrogen replacement and travel. 4. Would initiate thrombolytics if she becomes hemodynamically unstable. cc: MD Fred Hayes MD
[2020-02-11] MEDS ORDERED: KEFZOL ONE (19:05)
--- NOTE | 2020-02-11 19:10 | GENERAL SURGERY CONSULTATION ---
DATE: 02/11/2020 REASON FOR CONSULTATION: Possible ischemic left upper extremity. CHIEF COMPLAINT: Numbness of left arm. HISTORY OF PRESENT ILLNESS: This is a 59-year-old female who is admitted with an extensive thrombus of lower extremities, along with DVT of the left lower extremity. She also had pulmonary emboli diagnosed on the 08 of February. She clinically is doing much better and apparently plans for discharge [place] by Dr. Mora, but checking her room air O2 level, she stood up and became syncopal and passed out and transferred to the ICU. This was a brief loss of consciousness, but upon awaking, she had some numbness and pain of her elbow from her forearm to her hand. This since has resolved. Noninvasive arterial study, which showed that showed blunted waveforms left upper extremity, loss of radial pulse and significant decrease in the ulnar index when compared to the right. She has had no prior vascular procedures that she reports. There was no injury or lines other than peripheral IV started in the left arm. Did not identify any atrial septal defects or ventricular defects noted. She is on Eliquis. She does have some right heart strain noted on the echocardiogram. PAST MEDICAL HISTORY: Allergic rhinitis, hypothyroidism, but otherwise reasonably healthy. She is on hormone replacement and had a recent car ride about an hour and a half, but no other trauma in her legs. A history of thyroid cancer. SURGICAL HISTORY: Denies any vascular surgery. She has had a thyroidectomy and a hysterectomy. SOCIAL HISTORY: Drinks socially, but otherwise no smoking. No drugs. FAMILY HISTORY: Negative for blood clots, cancer. REVIEW OF SYSTEMS: Ten point negative other than what is mentioned in HPI. PHYSICAL EXAMINATION: She is afebrile. Heart rate in the low 100s. Blood pressures systolics 120s to 140s, O2 saturation 100 percent. She is on a Ventimask.General: She is alert. Cardiovascular: Sinus tachycardia. Pulmonary: No increased work of breathing. Abdomen: Soft, nontender. Integument: Warm dry. Psychiatric: Appropriate affect. Neurologic: No gross deficits. Peripheral vascular: No lower extremity edema and well perfused. Her left hand is warm. There seems to be normal capillary refill. Jett's test does seem to be intact with occluding of the radial artery. Her white count is 6, hematocrit 38. Her ABG is been reviewed. Creatinine 0.7. Troponins have been downtrending. Her lactate is normal. Urinalysis negative for nitrites and leukocytes. Her arterial study of left upper extremity shows an ulnar index of on the right of 0.99. The left is 0.36 with an absent waveform of the radial artery. Her brachial pressure is also diminished on the left relative to the right. Impression: Possible ischemia, left upper extremity. Although her symptoms are resolved, she is on anticoagulation, it is unclear and she is relatively low risk for lower extremity thrombosis, but she has developed extensive. I do not identify an obvious source for her left upper extremity possible embolism, but we will obtain a contrast evaluation to further evaluate this. Her symptoms improved. I do not feel as though her arm is acutely threatened and I think continuation of anticoagulation is probably the most reasonable course at this juncture given her high burden of pulmonary emboli. We will obtain a contrast runoff study of the left upper extremity. I have talked to the radiologist about this and will follow this along. We have also talked to Dr. Mora. She may benefit from thromboembolectomy if acute thrombus is noted. cc: MD Fred Rod MD
[2020-02-11] MEDS ORDERED: PITRESSIN ONE (19:17)
[2020-02-11] MEDS ORDERED: ROBINUL ONE (19:20)
[2020-02-11] MEDS ORDERED: NEOSTIGMINE ONE (19:21)
[2020-02-11] MEDS ORDERED: HEPARIN 25,000 UNITS/D5W 25,000 UNIT/250 ML IV.SOLN IV SCH (19:37)
--- NOTE | 2020-02-11 20:38 | OPERATIVE NOTE ---
PROCEDURE DATE: 02/11/2020 POSTOPERATIVE DIAGNOSIS: Thromboembolism of the left brachial artery. POSTOPERATIVE DIAGNOSIS: Thromboembolism of the left brachial artery. PROCEDURE PERFORMED: Left brachial artery open thromboembolectomy. ESTIMATED BLOOD LOSS: 50 mL SPECIMENS: Thrombus. ANESTHESIA: General. WELDING TESTER: Dr Kaiser was present for the case. He facilitated exposure and expedited the procedure in a critically ill patient. INDICATION: This is a 59-year-old female who was recently admitted with extensive lower extremity thrombus and extensive bilateral pulmonary emboli. She had right heart hypertension, and developed acute pain of her left upper extremity today. Noninvasive arteriography of the left upper extremity confirmed a long-segment brachial artery thrombus with occlusion of the radial artery and partial reconstitution of the ulnar artery. OPERATIVE FINDINGS: There was no evidence of thrombus distally. There was a large long-segment acute thrombus of the brachial artery. At the conclusion the case there was return of the ulnar artery pulse, with a faint radial artery signal and an intact palmar arch signal. OPERATIVE NOTE: Risks, benefits and alternatives were discussed with the patient and her . Both consented to the procedure. She was taken to the operating room and placed in supine position. General anesthesia was induced without complication. All bony prominences were padded. Her left arm was prepped with chlorhexidine solution and draped, excluding the hand. Preincisional antibiotics were administered. We made a longitudinal incision over the area of the brachial artery and carried this down, dissecting through the subcutaneous tissue. We incised the investing fascia. The brachial nerve was identified and protected. We continued our lateral dissection until I identified the artery. We protected the veins. The artery was encircled. There was no pulse here. It was quite small. After establishing inflow and outflow flow control with Vesseloops, a transverse arteriotomy was made with an 11 blade scalpel. There was no bleeding noted. We attempted several passes distally down to the level of the hand with a #3 Shubham catheter. No thrombus was removed distally. As such, we passed this proximally up to the level of the axilla, and a large amount of thrombus was removed with brisk inflow bleeding noted. After this, we then established good backbleeding. DeBakey clamps were placed proximally and distally. Please also note, she was systemically heparinized with 5000 units of systemic heparin prior to getting arterial inflow. The arteriotomy was closed with a 7-0 single-arm Prolene suture. After the clamps, we did back-bleed and flush the arteriotomy prior to completing it, and closed it. There was a strong pulse distally. We then regained ulnar signal and a faint radial signal, and palmar arch signal was intact. We irrigated the wound, noted hemostasis and closed the dermis with 3-0 Vicryl. Skin was closed with surgical clips. A gauze Medipore dressing was applied. Her hand was well perfused at the end of the case. She was awoken and extubated without issue. She was transferred back to recovery. I spoke with the . Counts were correct. cc: MD Fred Rod MD [facility]
[2020-02-11] MEDS ORDERED: ELIQUIS PO SCH (21:00)
[2020-02-12] MEDS: TYLENOL PO PRN (01:56)
[2020-02-12] MEDS: HEPARIN IV PRN (03:04)
[2020-02-12] MEDS: SYNTHROID PO SCH (07:05)
[2020-02-12 07:51] LABS: BASO# 0.01 X1000 (0.0-0.2); BASO% 0.1 % (0.0-0.8); EOS# 0.01 X1000 (0.0-0.7); EOS% 0.1 % (0.0-10.0); HEMATOCRIT 38.9 % (37.0-47.0); HEMOGLOBIN 12.7 g/dL (12.0-16.0); IMM GRAN# 0.03 X1000 (0.0-0.04); IMM GRAN% 0.3 % (0.0-0.5); LYMPH# 1.08 X1000 (1.2-3.4); LYMPH% 10.2 % (20.5-51.1); MCH 28.6 PG (27-31); MCHC 32.6 g/dL (33-37); MCV 87.6 FL (81-99); MONO# 0.66 X1000 (0.11-0.59); MONO% 6.3 % (1.7-9.3); MPV 11.7 FL (7.4-10.4); NEUT# 8.75 X1000 (1.4-6.5); PLT 245 X1000 (130-400); RBC 4.44 XMIL (4.2-5.4); RDW 14.3 % (11.5-14.5); WBC 10.54 X1000 (4.8-10.8)
[2020-02-12 07:56] LABS: INR 1.09; PROTIME 14.2 Seconds (11.0-16.0)
[2020-02-12 08:08] LABS: AGAP 11; ALB/GLOB RATIO 1.2; ALBUMIN 3.4 g/dL (3.5-5.0); ALKALINE PHOSPHATASE 48 U/L (32-104); BUN 9 mg/dL (8-22); CALCIUM 8.7 mg/dL (8.8-10.2); CHLORIDE 100 mmol/L (98-107); COSMO 269; CREATININE 0.7 mg/dL (0.5-0.9); ESTIMATED GFR > 60; GLUCOSE 127 mg/dL (70-104); GOT 24 U/L (10-30); GPT 26 U/L (10-36); SODIUM 134 mmol/L (136-145); TCO2 23 mmol/L (25-35); TOTAL BILIRUBIN 0.38 mg/dL (0.20-1.00); TOTAL PROTEIN 6.3 g/dL (6.3-8.3)
[2020-02-12] MEDS: ZOLOFT PO SCH (09:52)
[2020-02-12] MEDS: FLONASE NAS SCH (09:54)
--- NOTE | 2020-02-12 12:54 | PROGRESS NOTE ---
DATE: 02/12/2020 SUBJECTIVE: Yesterday afternoon, patient found to have acute arterial occlusion secondary to embolus in left upper extremity and this was addressed surgically with removal of a sizable clot. She continues without chest discomfort or shortness of breath. OBJECTIVE: Vital Signs: Blood pressure 127/92, heart rate 93, oxygen saturation 97% on nasal cannula oxygen. Neck: There is no significant jugular venous distention. Chest: Clear to auscultation. Cardiac exam: Reveals a regular rate and rhythm without appreciable murmur or gallop. Extremities: Are without edema. Peripheral pulses are intact symmetrically in upper extremities and lower extremities. LABORATORY DATA: Includes a white blood cell count 10.5, hematocrit 38.9, hemoglobin 12.7, platelet count 245,000. Sodium 134, potassium 4.0, chloride 100, carbon dioxide 23, BUN 9 creatinine 0.7, glucose 127. Followup echocardiography with intravenous agitated saline contrast study performed this morning. Preliminary result is positive for early appearance of contrast bubbles in the left atrium and left ventricle. Patent foramen ovale is suggested. IMPRESSION: Recent pulmonary embolus and deep vein thrombosis with recurrent pulmonary embolus and associated syncope as well as associated arterial embolus to left upper extremity, which has been removed. The latter raises suspicion for paradoxical embolus and indeed she is found to have patent foramen ovale. RECOMMENDATIONS: 1. Continue anticoagulation. Patient currently on intravenous heparin per protocol. 2. Limited activity for the next 48 hours. 3. Consider transesophageal echocardiography Friday to further define [id number] intracardiac shunting and probable patent foramen ovale. Consideration may ultimately be given to closing PFO. This was discussed at length with the patient. cc: MD Fred Montero MD
[2020-02-12] MEDS ORDERED: MORPHINE IV ONE (13:20)
[2020-02-12] MEDS ORDERED: HEPARIN 25,000 UNITS/D5W 25,000 UNIT/250 ML IV.SOLN IV SCH (13:43)
--- NOTE | 2020-02-12 15:17 | PULMONOLOGY PROGRESS NOTE ---
DATE: 02/12/2020 SUBJECTIVE: The patient is awake and alert. She reports she would like something to eat. She is tearful that her cannot be at her bedside due to current visitor limitation associated with pandemic, she is reporting moderate pain in the left arm and hand. OBJECTIVE: Vital Signs: The patient is afebrile. Blood pressure 127/92 heart rate 93, respiratory rate 21, oxygen saturation 97% on 4 L per nasal cannula. HEENT: Pupils are equal and reactive. Oropharynx appears clear. Neck: Supple. Chest: Reveals good air entry bilaterally without wheezing or rhonchi. Cardiac exam: S1, S2. Abdomen: Soft. Extremities: Without edema. LABORATORIES: CT angiogram yesterday prior to thrombectomy revealed brachial artery thrombosis. White blood count 10.54, hemoglobin 12.7, platelet count 245,000. Sodium 134, potassium 4.0, chloride 100, bicarbonate 23, BUN 9, creatinine 0.7. ProBNP 3110. IMPRESSION: A 59-year-old with: 1. Pulmonary emboli with significant clot burden. 2. Hypoxemic respiratory failure. 3. Arterial embolus to the left arm. [id number] shunting in the heart is suspected. PLAN: 1. Pain medication. 2. Full liquid diet. Would restrict diet today in the event she requires a second trip to the operating room. 3. Continue heparin drip. 4. Wean oxygen as tolerated. 5. Would keep at bedrest for now. cc: MD Fred Hayes MD
--- NOTE | 2020-02-12 16:53 | PROGRESS NOTE ---
DATE: 02/12/2020 SUBJECTIVE: The patient's chart was reviewed. In summary, patient was admitted on 02/10/2020 with respiratory failure in the setting of bilateral pulmonary emboli. Full evaluation was then pursued revealing a long segment of acute deep venous thrombosis involving the deep veins of the left lower extremity. Patient was placed on anticoagulation. Yesterday, patient was being assisted with ambulation in her room and experienced a syncopal episode. Acute medical intervention was pursued. CT scan revealed no hemorrhage. Upon waking from her syncopal episode, patient was noted to have left upper extremity numbness. Arterial evaluation suggested blunting of the waveforms throughout the left upper extremity, but relatively normal appearing waveforms on the right. The radial artery was noted to be occluded. CT angiogram of the upper extremity suggested brachial artery thrombosis. Dr. Cameron was consulted. A left brachial artery open thromboembolectomy was performed. Patient tolerated this well. Additionally with the evaluation, Dr. Velazquez pursued a bubble study suggesting a patent foramina ovale. This morning, patient is resting in bed. She notes postsurgical pain of her left upper extremity but overall states she is doing well. Shortness of breath remains reasonably stable. She denies fevers, chills, nausea, vomiting, or chest discomfort. OBJECTIVE: T-max 98 degrees, heart rate 81 to 94, respirations 15 to 25, blood pressure 127 to 148 over 71 to 100.General: No acute distress. Cardiovascular: Regular rate and rhythm. No significant murmurs, rubs, or gallops. Pulmonary: Clear to auscultation anteriorly. Abdomen: Soft, nontender, nondistended. Positive bowel sounds. Extremities: Moves all extremities well. No significant clubbing, cyanosis, or edema. Dermatologic: Evaluation reveals no evidence of rash. LABORATORY DATA: None. ASSESSMENT AND PLAN: 1. Deep venous thrombosis/pulmonary thromboembolism-patient does not have a definitive etiology. Hypercoagulable evaluation has been pursued. I agree with heparin drip for now. Patient will need transitioning to oral anticoagulation in approximately 48 hours. 2. Left brachial artery thromboembolism-patient is postoperative day 1 open thromboembolectomy. Overall, patient is doing well. With exception of postoperative pain, she denies current symptoms. 3. 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 This likely represents the pathway of embolic source to the left upper extremity. At this point, acute intervention is not warranted. She may require this in the future. 4. Hypothyroidism-we will continue patient on replacement. 5. Menopausal state-patient's estrogen has been discontinued as this may have played a role in her hypercoagulability. We will remain aware. 6. Activity-at this point, with her recent deep vein thrombosis/pulmonary thromboembolism and subsequent left brachial thromboembolism, I would recommend remaining bedbound for the next 24 to 48 hours. Thereafter, slow increase in activity will be pursued. 7. Disposition. At this point, patient continues to require senior care care in a hospital setting. We will plan discharge home once appropriate. cc: MD Fred Simmons MD
--- NOTE | 2020-02-12 17:42 | GENERAL SURGERY PROGRESS NOTE ---
DATE: 02/12/2020 SUBJECTIVE: Some pain at her incision, but no hand pain. Hemodynamically stable. weaned to nasal cannula overnight. Her left upper arm dressing is intact. She has a palpable radial and ulnar pulse with normal capillary refill. I talked to Dr. Velazquez and Dr. Kebede. They are going to continue to workup for heart for possible PFO and possible transesophageal echocardiogram. Otherwise, we will continue heparin for systemic anticoagulation. cc: MD Fred Rod MD MTDD
[2020-02-12] MEDS: NORCO-7.5 PO PRN ×2 (19:10→23:22)
[2020-02-13] MEDS: NORCO-7.5 PO PRN ×4 (05:58→21:55)
[2020-02-13] MEDS: SYNTHROID PO SCH (05:59)
[2020-02-13] MEDS: HEPARIN IV PRN (06:37)
[2020-02-13] MEDS: HEPARIN 25,000 UNITS/D5W 25,000 UNIT/250 ML IV.SOLN IV SCH (08:17)
[2020-02-13] MEDS: FLONASE NAS SCH (08:18)
[2020-02-13] MEDS: ZOLOFT PO SCH (08:21)
--- NOTE | 2020-02-13 12:46 | GENERAL SURGERY PROGRESS NOTE ---
DATE: 02/13/2020 SUBJECTIVE: Continues to wean down on nasal cannula. She is on 4 L, is not tachycardic. Oxygen saturation mid to high 90s. No hand pain just incisional pain. She has palpable radial ulnar pulse. Hand is well perfused normal capillary refill. She is on heparin drip. ASSESSMENT AND PLAN: A 59-year-old female who has extensive deep venous thrombosis, pulmonary emboli, and a paradoxical embolus in the left arm. Echo did confirm a patent PFO. She has been followed by the pulmonology and the cardiology services. Would recommend long-term anticoagulation for deep venous thrombosis and her left upper extremity embolus. Otherwise, we will check her wound tomorrow after taking her dressing down. cc: MD Fred Rod MD
--- NOTE | 2020-02-13 13:24 | ECHO REPORT ---
ORDER DATE: 02/11/2020 MEASUREMENTS: Septal thickness 1.0, left ventricular internal diameter in diastole 4.0, posterior wall thickness 1.0, left ventricular internal diameter in systole 3.0. SUMMARY: 1. Limited Two-dimensional and Doppler echocardiography performed with intravenous agitated saline contrast study to screen for [id number] intracardiac shunting. Acoustic window quality was adequate. 2. Aortic valve is trileaflet and opens normally on 2-dimensional images. Mitral and tricuspid valves are without evidence of structural abnormality, while pulmonic valve is not well demonstrated. There is very mild tricuspid regurgitation. The estimated systolic PA pressure by Doppler is 35 to 40 mmHg, suggesting mild pulmonary hypertension. Aortic root is normal in size. 3. Normal left ventricular dimensions demonstrated. The estimated left ventricular ejection fraction appears to be at least 60%. No regional wall motion abnormality can be appreciated. Left atrium, right atrium, and right ventricle are normal in size with grossly preserved right ventricular systolic function. 4. No pericardial effusion. 5. Appearance of inferior vena cava suggests normal central venous pressure. 6. Intravenous agitated saline contrast study performed and demonstrates early transition of "bubbles" [id number]. Patent foramina ovale is suggested. cc: MD Fred Montero MD
--- NOTE | 2020-02-13 14:40 | PROGRESS NOTE ---
DATE: 02/13/2020 SUBJECTIVE: The patient continues without chest discomfort or shortness of breath. OBJECTIVE: Vital Signs: Blood pressure 141/87, heart rate 86, oxygen saturation 94%. Neck: There is no significant jugular venous distention. Chest: Clear to auscultation. Cardiac: Regular rate and rhythm without appreciable murmur or gallop. Extremities: There is no evidence of peripheral edema. IMAGING AND LABORATORY DATA: Laboratory data includes PTT of 102.1. Echocardiography noteworthy for abnormal intravenous agitated saline contrast study showing early transition of bubbles from right to left. Patent foramen ovale suggested. IMPRESSION: Recent pulmonary embolus with deep venous thrombosis and subsequent recurrent pulmonary embolus and associated syncope, as well as associated arterial embolus to left upper extremity, which was subsequently removed. Patent foramen ovale suggested on followup echocardiography study with bubble study. Paradoxical embolus to left arm suggested. RECOMMENDATIONS: 1. Continue anticoagulation. Reasonable to transition to oral anticoagulant soon. 2. Limited activity for another 24 hours. 3. Consider transesophageal echocardiography tomorrow to further define [id number] intracardiac shunting. Patent foramen ovale is suggested on echocardiography. This was discussed with the patient, and she expressed desire to hold off on scheduling, but will give it further consideration. Patient to be made n.p.o. after midnight until she decides. cc: MD Fred Montero MD
--- NOTE | 2020-02-13 16:26 | PULMONOLOGY PROGRESS NOTE ---
DATE: 02/13/2020 SUBJECTIVE: The patient is awake, alert and conversant. She is less tearful than yesterday ans has a better disposition. She reports her pain is adequately controlled and has no pain in the left hand. OBJECTIVE: Vital Signs: The patient is afebrile for the last 24 hours. Blood pressure 118/95, heart rate 90, respiratory rate 19, oxygen saturation 95%. HEENT: Pupils are equal and reactive. Oropharynx appears clear. Neck: Supple. Respiratory: Chest reveals good air entry bilaterally without wheezing or rhonchi. Cardiac: S1, S2. Abdomen: Soft. Extremities: Without edema. LABORATORY DATA: No new chemistries, CBC or ABG. IMPRESSION: A 59-year-old with: 1. Pulmonary emboli with significant clot in the pulmonary arteries. 2. Acute hypoxemic respiratory failure. 3. Arterial embolus to the left arm. 4. Patent foramen identified on echocardiogram. PLAN: 1. Continue to limit movement over the next 24 hours as outlined by Cardiology. 2. Continue a full liquid diet. She reports she is not hungry. 3. Continue heparin drip. Consider transitioning her back to Eliquis tomorrow on the 10 mg twice a day dosing. 4. Continue to wean oxygen as tolerated. cc: MD Fred Hayes MD
--- NOTE | 2020-02-13 16:49 | PROGRESS NOTE ---
DATE: 02/13/2020 SUBJECTIVE: Upon my arrival, the patient was resting in bed. Overall, the patient states that she does feel improved from yesterday. Her shortness of breath has decreased. Left arm pain is acceptable. She denies fevers, chills, nausea, vomiting, or chest discomfort overnight. Thus far, she has tolerated a liquid diet. OBJECTIVE: T-max 97.7 degrees, heart rate 76 to 94, respirations 16 to 20, blood pressure 118- 154/75-97. General: No acute distress. Cardiovascular: Regular rate and rhythm. No significant murmurs, rubs, or gallops. Pulmonary: Clear to auscultation anteriorly. Abdomen: Soft, nontender, nondistended. Positive bowel sounds. Extremities: Moves all extremities well. No significant clubbing, cyanosis, or edema. Dermatologic: Evaluation reveals no evidence of rash. Laboratory Data: None. ASSESSMENT AND PLAN: 1. Deep venous thrombosis/pulmonary thromboembolism-hypercoagulable evaluation has been pursued. She is currently being treated with a heparin drip. She is tolerating well thus far. Transitioning to an oral anticoagulation will be considered in the next 24 hours. At this point, with a life-threatening pulmonary thromboembolism as well as an arterial thrombus, consideration will need to be made for an inferior vena cava filter. We will defer this to her primary care physician and surgical/cardiology team. 2. Left brachial artery thromboembolism-patient is postoperative day #2 open thrombectomy. Overall, she is doing well. She has good movement and blood flow to the left upper extremity. 3. Patent foramina ovale-this was diagnosed per bubble study. She is discussing a transesophageal echocardiogram with Dr. Velazquez. We will defer further management. In the setting of a limb-threatening arterial thrombus, one might consider closure of the patent foramina ovale in the near future. 4. Hypothyroidism-we will continue patient on replacement. 5. Menopause-patient's hormone replacement has been discontinued. This likely contributed to her hypercoagulability. 6. Activity-at this point, I have encouraged patient to remain bedbound as she did propagate an embolism associated with minimal exertion on Friday. We will defer further activity to her primary team in the next 24 to 48 hours. 7. Disposition-at this point, patient continues to require halfway care in a hospital setting. We will plan discharge home once appropriate. cc: MD Fred Simmons MD
[2020-02-14] MEDS: HEPARIN 25,000 UNITS/D5W 25,000 UNIT/250 ML IV.SOLN IV SCH (00:41)
[2020-02-14 06:22] LABS: HEMATOCRIT 38.9 % (37.0-47.0); HEMOGLOBIN 12.6 g/dL (12.0-16.0); MCH 28.3 PG (27-31); MCHC 32.4 g/dL (33-37); MCV 87.2 FL (81-99); MPV 11.6 FL (7.4-10.4); RBC 4.46 XMIL (4.2-5.4); RDW 14.2 % (11.5-14.5); WBC 8.1 X1000 (4.8-10.8)
[2020-02-14] MEDS: SYNTHROID PO SCH (06:29)
[2020-02-14 06:36] LABS: AGAP 10; ALBUMIN 3.2 g/dL (3.5-5.0); ALKALINE PHOSPHATASE 51 U/L (32-104); BUN 10 mg/dL (8-22); CHLORIDE 101 mmol/L (98-107); COSMO 274; CREATININE 0.7 mg/dL (0.5-0.9); ESTIMATED GFR > 60; GLUCOSE 111 mg/dL (70-104); GOT 26 U/L (10-30); GPT 32 U/L (10-36); PHOSPHORUS 3.7 mg/dL (2.7-4.5); POTASSIUM 4.1 mmol/L (3.5-5.1); SODIUM 137 mmol/L (136-145); TCO2 26 mmol/L (25-35); TOTAL PROTEIN 6.5 g/dL (6.3-8.3)
--- NOTE | 2020-02-14 07:07 | Diag Imaging Result Doc PS360 ---
CHEST-PORTABLE - 02/14/2020 INDICATION: abnormal exam COMPARISON: 02/11/2020 FINDINGS: Lung volumes are severely low with bibasilar atelectasis. Otherwise no definite infiltrates. IMPRESSION: Severely low lung volumes with bibasilar atelectasis. Electronically signed by Juan Omalley 02/14/2020 7:04 AM
[2020-02-14] MEDS: NORCO-7.5 PO PRN ×4 (07:49→20:59)
[2020-02-14] MEDS: ZOLOFT PO SCH (08:13)
[2020-02-14] MEDS: FLONASE NAS SCH (10:14)
--- NOTE | 2020-02-14 12:56 | PROGRESS NOTE ---
DATE: 02/14/2020 SUBJECTIVE: The patient is resting in bed in the ICU. She has no complaints. She had a fairly quiet weekend. All the chart notes were reviewed and discussed with the patient and her who was on the cell speaker phone. OBJECTIVE: Vital Signs: Pulse rate of 89, 16, 136/95. PHYSICAL EXAMINATION: General: The patient is alert, oriented, conversive and appropriate. Lungs: Clear to auscultation. Cardiovascular: Regular and not tachycardic. Left Upper Extremity: The patient's left arm was initially covered by a bandage at the biceps area. Dr. Cameron came in and took that off and there was a swollen, bruised area with staple line present. There was a little bit of oozing out of that staple line, but it otherwise looked as expected for atherectomy. LABORATORY: Hemoglobin 12.6, white count 8.1. ProBNP is down to 1055. ASSESSMENT AND PLAN: 1. The patient has seemed to recover fairly well from her deep venous thrombosis and pulmonary thromboembolism. Her vital signs appear to be improved. She is down to 4 L nasal cannula and resting comfortably with saturations in the mid 90s. I discussed the possibility of an IVC filter with Dr. Cameron. The patient does not meet strict criteria as a treatment failure, but given the severity of her illness and the extensive nature of the emboli as well as her complications caused by such the possibility of putting in a temporary IVC filter is on the table. We have not decided definitively at present. 2. The patient will transition to oral anticoagulation soon. 3. I discussed with Stephanie Lorenzana and then with Dr. Lizarraga about the necessity of BRIE. They think they would rather have that information about the PFO on hand before she leaves the hospital. We will see if we can get that rescheduled for tomorrow. As for today, I went ahead and fed the patient breakfast as we had initially called off that procedure for this morning. 4. I have consulted Dr. Palacios for help with her coagulation status. 5. A repeat of her venous dopplers showed residual clot in her left lower extremity, which has not really changed much compared to previous. 6. I would like to mobilize the patient a bit and get her up in the chair some and remove her Escobar catheter as soon as possible. cc: Fred Mora MD [facility]PITALBecky
[2020-02-14] MEDS ORDERED: HEPARIN 25,000 UNITS/D5W 25,000 UNIT/250 ML IV.SOLN IV SCH (15:00)
--- NOTE | 2020-02-14 15:05 | HEMO/ONC CONSULTATION ---
DATE: 02/14/2020 REASON FOR CONSULTATION: Evaluation of acute DVT and PE. HISTORY OF PRESENT ILLNESS: Ms. Davalos is a 59-year-old, female, who presented to the ER with shortness of breath and nausea. Her evaluation in the ER showed a blood clot in the left calf, behind the left knee. Original echocardiogram showed right ventricular strain with elevated right-sided pressures. Left ventricular function was normal. The patient does not have a history of DVTs. She does report a recent travel history to [place] approximately a week and a half ago. Upon initial presentation, she denied any chest pain or palpitations. Since her admission, the patient has been ambulating. On 02/11/2020, the patient experienced a syncopal episode. Upon awakening, the patient had left upper extremity numbness. Arterial evaluation suggested radial artery was occluded. CT angiogram suggested upper extremity brachial artery thrombosis. Dr. Cameron performed thromboembolectomy. The patient has also had a bubble study, which suggested a patent foramen ovale. The patient's CT pulmonary angiogram revealed extensive bilateral emboli with saddle component. On 02/11/2020, the patient's anticoagulation was changed to Eliquis 10 mg twice a day. PAST MEDICAL HISTORY: Seasonal allergic rhinitis, iatrogenic hypothyroidism, and she is on estrogen hormone replacement. PAST SURGICAL HISTORY: She reports thyroidectomy for thyroid cancer, and total hysterectomy. SOCIAL HISTORY: Drinks alcohol socially. Denies tobacco or drug use. ALLERGIES: Demeclocycline HCL. HOME MEDICATIONS: Estradiol, Flonase, meloxicam, dexchlorpheniramine/phenylephrine, Zoloft, and Synthroid. PHYSICAL EXAMINATION: Vital Signs: Temperature 98 degrees, pulse rate 94, respiratory rate 17, blood pressure 135/87, O2 saturation 96% on nasal cannula at 3 L. She is in 3/10 head pain. General: The patient appears in no acute distress. HEENT: Sclerae anicteric. PERRLA. Oral mucosa is normal. Cardiovascular: Normal S1, S2. Heart rate and rhythm are regular. Respiratory: Lung sounds are clear to auscultation. Extremities: Left upper arm swollen with grooves at the staple line, status post atherectomy. Neurological: Alert and oriented x3. Gastrointestinal: Abdomen is soft, nontender, nondistended. Lower Extremities: No edema noted. LABORATORY DATA: WBCs 8.10, hemoglobin 12.6, hematocrit 38.9, platelet count 258,000. ProBNP 1055. RADIOLOGY: Chest x-ray: Low lung volumes with bibasilar atelectasis. ASSESSMENT AND PLAN: 1. Deep venous thrombosis and bilateral pulmonary embolisms. The patient appears to be recovering well. Vital signs have improved. Her oxygen use is decreasing. Dr. Mora is discussing the possibility of an inferior vena cava filter with Dr. Cameron. The patient is currently on intravenous heparin, with plans to transition to oral anticoagulation soon. 2. Hypercoagulable state. We will follow up with the patient in the office in approximately 2 weeks, and evaluate her hypercoagulable workup. 3. Mobilization and deconditioning. Slowly begin to mobilize the patient. Dictated by HEBERT Daily for Crow Palacios MD cc: MD Fred Lopez MD
--- NOTE | 2020-02-14 17:41 | GENERAL SURGERY PROGRESS NOTE ---
DATE: 02/14/2020 SUBJECTIVE: Some pain in her incision. There is some ecchymosis and some bruising. Her hand has normal function, is warm without pain. She continues to wean on her nasal cannula. She is not tachycardic and she is saturating in the mid 90s on 2 L. She has a palpable radial and ulnar pulse in the left. ASSESSMENT AND PLAN: A 59-year-old female with deep venous thrombosis, pulmonary embolism, and paradoxical thrombus of the left brachial arm and the patent foramina ovale. After further discussion with Hematology and Dr. Mora, we decided to place an inferior vena cava filter to prevent future episodes. I discussed with the patient. I discussed the anticipated need that she will have lifelong anticoagulation and the need for subsequent removal of the filter in four months. We discussed the risk of bleeding, infection, migration of filter, vena cava thrombosis, and even recurrent pulmonary embolus. She understands all this and consents. We will arrange this to be performed in the morning at 7 o'clock in our earthmoving labourer with transesophageal echocardiogram to follow. Otherwise, we will continue her heparin. Plan to hold her heparin one hour professional benefits sales consultant to the OR and then will resume it shortly thereafter. cc: MD Fred Rod MD
--- NOTE | 2020-02-14 21:03 | Extremity Venous Study ---
PROCEDURE NAME: Venous U/S Bilateral Legs - 02/14/2020 PROCEDURE: Bilateral lower extremity venous duplex and color flow imaging study using the [employer] Vivid E9 ultrasound system with a 9L-D transducer. REFERRING PHYSICIAN: Laurel. 59-year-old female. INTERNAL AFFAIRS COMMANDER: Odilia Aguiar RVT. INDICATIONS: Followup of known DVT, left leg. The patient has had a pulmonary embolus and also thrombus in the left upper extremity. FINDINGS: The right common femoral vein and its branches, deep and superficial femoral veins were satisfactorily imaged. They had flow through them and were compressible. Right popliteal vein and the deep veins below the right knee were all compressible and had flow through them. The superficial veins of the right lower extremity were compressible throughout their length. The left common femoral vein had flow and it was compressible. There was evidence of thrombus still present in the left superficial femoral vein and extending into the popliteal vein, and the proximal small veins below the left knee, posterior tibial vein and peroneal veins. There was some flow present around the thrombus in the distal superficial femoral vein and popliteal vein. The superficial veins of the left lower extremity were compressible throughout their length. INTERPRETATION: Ongoing deep venous thrombosis which is not obstructing involving the left superficial femoral vein and extending into the left popliteal vein and the small veins below the left knee as described above. There is no evidence of acute deep or superficial venous thrombosis, right lower extremity. cc: MD Fred Wu MD
--- NOTE | 2020-02-14 22:12 | PULMONOLOGY PROGRESS NOTE ---
DATE: 02/14/2020 SUBJECTIVE: The patient is awake, alert, and conversant. She reports minimal arm pain. She is without shortness of breath. OBJECTIVE: Vital Signs: The patient has been afebrile for the last 24 hours. Blood pressure 141/91, heart rate 92, respiratory rate 17, oxygen percent on 2 L per nasal cannula. HEENT: Pupils are equal and reactive. Oropharynx appears clear. Neck: Is supple. Chest: Reveals good air entry bilaterally without wheezing or rhonchi. Cardiac exam: S1, S2. Abdomen: Is soft. Extremities: Without edema. LABORATORIES: Sodium 137, potassium 4.1, chloride 101, bicarbonate 26, BUN 10, creatinine 0.7. glucose 111. White blood count 8.10, hemoglobin 12.6, platelet count 258,000. IMPRESSION: 1. A 59-year-old with pulmonary emboli. 2. Acute hypoxemic respiratory failure. 3. Patent foramen ovale. 4. Arterial embolus status post thrombectomy. DISCUSSION: A 59-year-old with problems outlined above. Hemodynamically, she is doing well. PLAN: 1. Continue anticoagulation. 2. Wean oxygen as tolerated. 3. Consider oral anticoagulation in the near future. cc: MD Fred Hayes MD [facility]
[2020-02-15] MEDS: NORCO-7.5 PO PRN ×4 (03:36→19:49)
[2020-02-15] MEDS ORDERED: HEPARIN 1000 UNITS/NS 1,000 UNIT/500 ML IV.SOLN ONE (05:50)
[2020-02-15] MEDS: SYNTHROID PO SCH (06:09)
[2020-02-15] MEDS ORDERED: DIPRIVAN 1% 500 MG/50 ML BOTTLE ONE ×2 (06:40)
[2020-02-15] MEDS ORDERED: CLAVE TWINSITE 32 IN 11959 ONE (06:54)
[2020-02-15] MEDS ORDERED: ANESTHESIA PB SET 88 IN 5742 ONE (06:54)
[2020-02-15] MEDS ORDERED: NS 1,000 ML ONE (06:54)
[2020-02-15] MEDS ORDERED: VERSED ONE (07:03)
[2020-02-15] MEDS ORDERED: HEPARIN IV ONE (08:52)
[2020-02-15] MEDS ORDERED: HEPARIN IV PRN (08:52)
--- NOTE | 2020-02-15 08:52 | Transesophageal Echocardiogram ---
DATE: 02/15/2020 PROCEDURE PERFORMED: Transesophageal echocardiogram. INDICATIONS: Rule out PFO and intracardiac cause of thrombus. PROCEDURE IN DETAIL: The patient was in the cardiac catheterization laboratory, informed consent was obtained. Intravenous access was established. The patient was anesthetized using propofol. A transesophageal echocardiogram probe was easily passed into the esophagus and ultrasound pictures were obtained. The patient tolerated the procedure well. There was no complications. FINDINGS: 1. Normal left ventricular cavity size. 2. Estimated ejection fraction of 60%. 3. Aortic valve leaflets were trileaflet. 4. Mitral valve was normal. 5. Tricuspid valve was normal. 6. Pulmonic valve was normal. 7. Left atrium was normal. 8. Left atrial appendage was normal. 9. Ascending aorta was normal. 10. Doppler studies revealed there is no aortic stenosis. 11. There is mild aortic regurgitation. 12. There is mild tricuspid regurgitation. 13. Mild mitral regurgitation. 14. Saline contrast study revealed suggestion of a patent foramen ovale. There were a few bubbles noted to cross the interatrial septum. This is likely to reflect patent foramen ovale. 15. There is no obvious intracardiac mass or thrombus seen. CONCLUSIONS: 1. Normal left ventricular cavity size. 2. Estimated ejection fraction of 60%. 3. Saline contrast study and color dopplers were performed across the interatrial septum. A few bubbles crossed over. This is likely suggestion of patent foramen ovale. There was no obvious atrial septal defect noted. cc: MD Stephanie Hull PA Timothy P. Weirich, MD
[2020-02-15] MEDS ORDERED: HEPARIN 25,000 UNITS/D5W 25,000 UNIT/250 ML IV.SOLN IV SCH (09:00)
--- NOTE | 2020-02-15 09:00 | OPERATIVE NOTE ---
PROCEDURE DATE: 02/15/2020 PREOPERATIVE DIAGNOSIS: Deep venous thrombosis, with pulmonary embolism and paradoxical left brachial artery thromboembolism. POSTOPERATIVE DIAGNOSIS: Deep venous thrombosis, with pulmonary embolism and paradoxical left brachial artery thromboembolism. PROCEDURES PERFORMED: 1. Ultrasound-guided inferior vena cava filter placement with fluoroscopy less than 1 hour. 2. Vena cavogram. ANESTHESIA: MAC with local. ESTIMATED BLOOD LOSS: 5 mL. SPECIMENS: None. INDICATIONS: This is a 59-year-old female, who presented with a massive pulmonary embolus from a DVT in the left lower extremity. She subsequently had a paradoxical thrombus via patent foramen ovale of the left brachial artery. IVC filter is indicated to prevent further life-threatening pulmonary embolus. OPERATIVE FINDINGS: 1. Ultrasound of the right groin showed a compressible common femoral vein, with no evidence of DVT. 2. Final fluoroscopic image showed good positioning of the vena cava overlying the L2 vertebral body, well below the renal veins. Venogram showed normal vena cava diameter and visualized bilateral renal veins. OPERATIVE DEVICE PLACED: Argon Option Elite removable vena cava filter. OPERATIVE NOTE: Risks, benefits and alternatives were discussed with the patient and she consented to the procedure. She was seen preoperatively. Surgical site was confirmed. She was taken to the catheterization lab, where IV anesthesia was administered and the right groin was prepped and draped with chlorhexidine. Local anesthetic was infiltrated and using ultrasound guidance, the femoral vein was accessed on the first pass. Dark, nonpulsatile venous blood was noted on return. Wire access was obtained and we advanced the introducer sheath with a dilator under fluoroscopic guidance. Venogram was performed. We confirmed that we were in good position. Ultrasound also confirmed that the wire coursed directly in the vein and did not traverse the artery. At this point, the dilator and the wire were removed, and we advanced, after venogram was performed and we identified the renal veins, an adequate diameter vena cava. We advanced the device up to and deployed it overlying the L2 vertebral body well below the renal vein. There was good deployment and it was in good upright position. Final venogram showed good flow of contrast through the vena cava. The sheath was removed under fluoroscopic guidance. Pressure was held for several minutes. Dressing was applied. There was no complication. cc: MD Fred Rod MD
[2020-02-15] MEDS: FLONASE NAS SCH (09:28)
[2020-02-15 09:37] LABS: INR 0.94; PROTIME 12.7 Seconds (11.0-16.0)
[2020-02-15] MEDS: ZOLOFT PO SCH (10:09)
[2020-02-15 10:28] LABS: PTT 26.4 Seconds (22.3-41.8)
--- NOTE | 2020-02-15 11:57 | Diag Imaging Result Doc PS360 ---
EXAM: KUB ABDOMEN INDICATION: IVC filter placement TECHNIQUE: One view COMPARISON: None. FINDINGS: An IVC filter is in place. The proximal tip of the IVC filter projects over the inferior endplate of L1 and the distal tibia project over the superior endplate of L3. There are unremarkable bowel gas and stool patterns. No definite large volume free abdominal gas is appreciated given the limitations of a portable supine radiograph. IMPRESSION: IVC filter in place as described. No definite acute pathology, otherwise. Electronically signed by Josue Villar 02/15/2020 11:55 AM
--- NOTE | 2020-02-15 15:16 | HEMO/ONC PROGRESS NOTE ---
DATE: 02/15/2020 SUBJECTIVE: This patient is status post IVC filter placement and BRIE this morning. She is recovering well. She tolerated her procedure very well, it was successful. No acute events occurred overnight. OBJECTIVE: Vital signs: Temperature 98.6 degrees, pulse rate 114, respiratory rate 25, blood pressure 148/85, O2 saturation 98% on 2 L nasal cannula. She is in 5/10 pain to her head. PHYSICAL EXAMINATION: General: The patient is in no acute distress. Cardiovascular: Regular rate and rhythm. Respiratory: Lung sounds clear to auscultation. Extremities: No edema noted. Neurological: Awake, alert, oriented x3. No focal motor deficits noted. ASSESSMENT AND PLAN: 1. Deep venous thrombosis and bilateral pulmonary embolism. The patient had an IVC filter placed by Dr. Cameron this morning. The procedure was successful. Patient recovered well. The patient remains on Eliquis 10 mg twice a day. The patient's surgical site from arm embolectomy is doing well. Her pain is minimal. 2. Hypercoagulable state. We will follow up with the patient in the office upon her discharge for further evaluation and workup. Mobilization deconditioning, slowly begin to mobilize the patient. 3. Patent foramen ovale. The patient had a transesophageal echocardiogram today, which showed an ejection fraction of 60% and probable patent foramen ovale. Cardiology will follow. Dictated by HEBERT Daily for Crow Palacios MD cc: MD Fred Lopez MD
[2020-02-15] MEDS ORDERED: LASIX IV ONE (16:11)
[2020-02-15] MEDS: ELIQUIS PO SCH (16:21)
--- NOTE | 2020-02-15 16:30 | PULMONOLOGY PROGRESS NOTE ---
DATE: 02/15/2020 SUBJECTIVE: The patient is sedated but arousable after procedures today. OBJECTIVE: Vital Signs: The patient has been afebrile for the last 24 hours. Blood pressure 156/99, heart rate 113, respiratory rate 19, oxygen saturation 92% on nasal cannula. HEENT: Pupils are equal and reactive. Oropharynx appears clear. Neck: Supple. Chest: Occasional rhonchi bilaterally. Cardiac exam: S1-S2. Abdomen: Soft. Extremities: Without edema. LABORATORIES: Transesophageal echo reveals normal ejection fraction, mild aortic stenosis, mild tricuspid regurgitation, mild mitral regurgitation and an occasional bubble crossing the interatrial septum suggesting a patent foramen ovale. IMPRESSION: A 59-year-old with: 1. Acute pulmonary emboli. 2. Deep vein thrombosis. 3. Acute hypoxemic respiratory failure. 4. Patent foramen ovale. 5. Arterial embolus to the left arm, status post thrombectomy. 6. Status post inferior vena cava (IVC) filter placement. 7. Status post transesophageal echo. PLAN: 1. Continue current blood thinner regimen. She could be transitioned to oral agents now that she has had her filter placed. 2. Anticipate transfer to the floor. 3. With filter placement, she can begin getting out of bed. cc: MD Fred Hayes MD
--- NOTE | 2020-02-15 23:45 | PROGRESS NOTE ---
DATE: 02/15/2020 SUBJECTIVE: I caught up with the patient in the afternoon after her procedures were complete. She states that she has had a cough since she got her procedure, but was otherwise feeling reasonably well. Reportedly, based on the operative notes, both of her procedures went well. OBJECTIVE: Vital signs: Patient is afebrile at time my. At the time of my examination, the pulse rate was 115, respirations were 16, unlabored, blood pressure was 156/99, she was 94% saturated on 4 L nasal cannula. General: The patient had a rattly, wet sounding cough. Lungs: Clear. She was not wheezing. She was not in respiratory distress. Cardiovascular: Revealed a regular tachycardia. Extremities: Show no peripheral edema. LABORATORY: The patient has Factor V Leiden came back negative today. Her hypercoagulable workup has been essentially normal. ASSESSMENT AND PLAN: 1. The patient has deep venous thrombosis, pulmonary thromboembolism, as well as patent foramen ovale with arterial embolism. She has had an embolectomy in. She now has a retrievable inferior vena cava filter placed this morning. Transesophageal echocardiogram showed only a small patent foramen ovale, if indeed it was even worthy of mention, only a few bubbles came through there. The patient has been changed over to oral anticoagulation and we are increasing her mobility level slowly. 2. The patient is on Eliquis 10 mg twice a day. 3. Dr. Lizarraga was unimpressed by the presence of the leakage of a few air bubbles on the transesophageal echo. I do not think any immediate action is necessary in regard to that cardiac defect. 4. Dr. Palacios will complete outpatient hypercoagulable workup. 5. The patient will be mobilized. We are going to discontinue her Escobar catheter. Hopefully, we can transfer her to the floor tomorrow. 6. The patient is tachycardic and does have a wet sounding cough after the procedure. We will continue to follow her respiratory status. cc: Fred Mora MD
[2020-02-16] MEDS: NORCO-7.5 PO PRN ×3 (02:05→23:03)
[2020-02-16] MEDS: ELIQUIS PO SCH ×2 (05:54→16:44)
[2020-02-16] MEDS: SYNTHROID PO SCH ×2 (05:55→06:18)
[2020-02-16 06:23] LABS: BASO# 0.02 X1000 (0.0-0.2); BASO% 0.2 % (0.0-0.8); EOS# 0.45 X1000 (0.0-0.7); EOS% 4.9 % (0.0-10.0); HEMOGLOBIN 12.1 g/dL (12.0-16.0); IMM GRAN# 0.02 X1000 (0.0-0.04); IMM GRAN% 0.2 % (0.0-0.5); LYMPH# 1.59 X1000 (1.2-3.4); LYMPH% 17.4 % (20.5-51.1); MCH 28.4 PG (27-31); MCHC 32.7 g/dL (33-37); MCV 86.9 FL (81-99); MONO# 0.71 X1000 (0.11-0.59); MONO% 7.8 % (1.7-9.3); MPV 11.6 FL (7.4-10.4); NEUT# 6.33 X1000 (1.4-6.5); NEUT% 69.5 % (42.2-75.2); PLT 246 X1000 (130-400); RBC 4.26 XMIL (4.2-5.4); RDW 14.1 % (11.5-14.5); WBC 9.12 X1000 (4.8-10.8)
[2020-02-16] MEDS: FLONASE NAS SCH (07:59)
[2020-02-16] MEDS: ZOLOFT PO SCH (07:59)
--- NOTE | 2020-02-16 08:30 | PROGRESS NOTE ---
DATE: 02/16/2020 SUBJECTIVE: The patient voiced no complaints this morning. She was sitting in bed eating breakfast. She was awake and conversant. She stated that she was able to sit on the edge of the bed for an hour or so, and move about freely in that way. She did not get up and walk, but that is her next goal. Her cough after yesterday's procedure has improved greatly, and she states overall she feels much improved. OBJECTIVE: Vital Signs: 98.2, 93, 14, 108/79, 97% saturated on 4 L nasal cannula. General: On physical exam, the patient is alert, oriented, conversive and appropriate. Lungs: The patient's lungs are clear to auscultation bilaterally. She has reasonable air movement. She states that she feels restricted in her ability to take a "full breath." This was noted on previous x-rays. I do not see any limitation in the excursion of chest wall. Cardiovascular: Regular, approximately 90 beats per minute at the time of my examination. Extremities: Show no peripheral edema. LABORATORY: White cell count 9.1, hemoglobin 12.1. ASSESSMENT AND PLAN: The patient has: 1. Deep vein thrombosis, pulmonary thromboembolism and crossover arterial embolism have been addressed surgically by means of atherectomy in the left brachial artery, and a retrievable inferior vena cava filter placed yesterday. She is on Eliquis 10 mg twice daily for 1 week period of time, and then we will transition to the standard dose. 2. We are aware that the patient has a patent foramen ovale. 3. Dr. Palacios will complete outpatient hypercoagulable workup. 4. The patient's tachycardia and cough seem to have resolved to a great degree since yesterday. We will continue to monitor this diligently. We have ordered an inspiratory spirometer. 5. I plan to transfer the patient out to either a private room over to the progressive care unit as beds become available. I want physical therapy to try and get her up and in the chair, maybe even to take a few steps. Hopefully, if she can regain her strength in her feet fairly quickly, we can get her out of the hospital soon. We are cautiously optimistic about this possibility. cc: Fred Mora MD
[2020-02-16] MEDS: DULCOLAX PO SCH (10:02)
--- NOTE | 2020-02-16 11:09 | GENERAL SURGERY PROGRESS NOTE ---
DATE: 02/16/2020 SUBJECTIVE: Feels okay. No hand pain. Her incision is draining a bit of serosanguineous fluid, and there is bruising. No lower extremity swelling. Her right groin is flat. I reviewed her vital signs. OBJECTIVE: Vital Signs: Heart rate is in the 90s, blood pressure 109/71, oxygen saturation is high 90s on 4 L. General: She is alert. Extremities: Her left hand has a palpable radial and ulnar pulse. Her incision is intact with bruising, a little bit of swelling. LABORATORY DATA: White count is 9, hematocrit is stable at 37. Her coags have been therapeutic. ASSESSMENT AND PLAN: This is a 59-year-old female with deep venous thrombosis, pulmonary embolism, and paradoxic thrombus of the left brachial artery. Patent foramen ovale is small. She has an inferior vena cava filter. She will need lifetime anticoagulation. Will defer to the Hematology and Medicine Services as to when they transition to oral. From a vascular standpoint, we can remove her filter in 4 months. I have discussed with the patient and her . Will take her tu out in a week or two in the office. cc: MD Fred Rod MD
[2020-02-16] MEDS: ZOFRAN IV PRN ×2 (16:15→23:04)
[2020-02-16] MEDS: TYLENOL PO PRN (16:44)
--- NOTE | 2020-02-17 00:23 | PULMONOLOGY PROGRESS NOTE ---
DATE: 02/16/2020 SUBJECTIVE: The patient is arousable to alert. She reports she has had a good day. She has had some ambulation today. She is without complaints. She reports her arm pain continues to decrease. OBJECTIVE: Vital Signs: The patient has been afebrile for the last 24 hours. She is being weaned off of oxygen. Blood pressure 135/75, heart rate 90, respiratory rate 20, oxygen saturation 98%. HEENT: Pupils are equal and reactive. Oropharynx appears clear. Neck: Supple. Chest: Reveals good air entry bilaterally without wheezing or rhonchi. Cardiac: S1, S2. Abdomen: Soft. Extremities: Without edema. IMPRESSION: A 59-year-old with 1. Acute pulmonary emboli. 2. Deep vein thrombosis. 3. Resolving hypoxemic respiratory failure. 4. Small patent foramen. 5. Status post embolectomy from the right arm. 6. Status post inferior vena cava filter placement. DISCUSSION: A 59-year-old with problems outlined above. She continues to improve. RECOMMENDATIONS: 1. Agree with oral antibiotics as you are doing. 2. From a pulmonary standpoint, she can be discharged soon. 3. Please call with additional questions. cc: MD Fred Hayes MD
[2020-02-17] MEDS: ELIQUIS PO SCH ×2 (05:54→17:14)
[2020-02-17] MEDS: SYNTHROID PO SCH ×2 (05:54→06:42)
[2020-02-17] MEDS: TYLENOL PO PRN (07:59)
[2020-02-17] MEDS: ZOFRAN IV PRN ×2 (07:59→11:50)
[2020-02-17] MEDS: ZOLOFT PO SCH (08:00)
[2020-02-17] MEDS: DULCOLAX PO SCH (08:00)
[2020-02-17] MEDS: FLONASE NAS SCH (11:45)
--- NOTE | 2020-02-17 12:18 | GENERAL SURGERY PROGRESS NOTE ---
DATE: 02/17/2020 Hand is warm, palpable radial and ulnar pulse. Incisions intact with bruising, but decreased swelling. Right groin is flat. No fevers, no tachycardia overnight. She is remains on 3 to 4 L nasal cannula. ASSESSMENT AND PLAN: This 59-year-old female DVT, PE, patent foramina ovale paradoxical thrombus. She had an IVC filter in the left brachial artery thrombectomy. She is doing well. I can see her in a week. Plans to transition to oral anticoagulation. I will remove her tu in a week. cc: MD Fred Rod MD [facility]
--- NOTE | 2020-02-17 13:09 | PROGRESS NOTE ---
DATE: 02/17/2020 SUBJECTIVE: The patient just got back from the restroom. She is a bit winded. She is overall a little bit debilitated and weak from being in the hospital bed for so long. She states that she is not grossly short of breath and is feeling better on a daily basis, but is still weak. VITAL SIGNS: 97.8, 95, 12, 124/70. PHYSICAL EXAMINATION: The patient's lungs are clear to auscultation bilaterally. Cardiovascular: Regular, without appreciable murmur or gallop. Extremities show no peripheral edema. ASSESSMENT AND PLAN: 1. The patient's deep venous thrombosis, pulmonary thromboembolism, and crossover arterial embolism have been addressed with atherectomy and retrievable inferior vena cava filter. She is on Eliquis 10 mg daily for 1 week. 2. Patent foramen ovale. 3. Hypercoagulable workup will continue on outpatient basis. Some thought may need to be given to an occult malignancy workup as appropriate. 4. The patient's tachycardia and cough have generally resolved. She is feeling better on a daily basis. We have encouraged use of inspiratory spirometer and increased level of movement. Physical therapy has been consulted. 5. Although the patient continues to improve, she is still rather weak. I do not think that she could do for herself very well at home at this point. We asked her to try and get more activity and hopefully, we can get home by this weekend. We will continue to work on her strength and stamina, and we are going to get a home oxygen evaluation performed today. cc: Fred Mora MD
[2020-02-17] MEDS: NORCO-7.5 PO PRN ×2 (13:27→22:10)
[2020-02-18] MEDS: ELIQUIS PO SCH (06:54)
[2020-02-18] MEDS: TYLENOL PO PRN (06:54)
[2020-02-18] MEDS: SYNTHROID PO SCH (06:54)
[2020-02-18 08:10] VITALS: BP 127/70
[2020-02-18] MEDS: ZOLOFT PO SCH (09:26)
[2020-02-18] MEDS: NORCO-7.5 PO PRN (09:27)
[2020-02-18] MEDS: DULCOLAX PO SCH ×2 (09:27→09:31)
[2020-02-18] MEDS: ZOFRAN IV PRN (09:27)
[2020-02-18] MEDS: FLONASE NAS SCH (09:31)
--- NOTE | 2020-02-18 10:42 | DISCHARGE SUMMARY ---
ADMISSION DATE: 02/10/2020 DISCHARGE DATE: 02/18/2020 DISCHARGE DIAGNOSES: 1. Submassive pulmonary thromboembolism. 2. Deep vein thrombosis left leg. 3. Paradoxical embolus to the left brachial artery. 4. Patent foramina ovale. 5. Hypothyroidism. HOSPITAL COURSE: This 59-year-old white female presented with acute shortness of breath and through her ER workup was determined to have submassive pulmonary embolus with a fairly significant clot burden. She was hypoxemic. She was admitted and started on anticoagulation appropriately. The venous ultrasound of her legs revealed a clot in her left leg, which was still remained. This appeared to be stable. After couple days of anticoagulation, she was switched to oral agents and seemed to be doing well. We were doing a predischarge oxygen saturation test and at that time, she felt weak and collapsed on the bed, although she did not receive any chest compressions or medication they did call a code blue due to hypoxemia. She recovered quickly. We transferred her to the ICU and at that time she noted numbness in the left hand and a sort of loss of use of that particular extremity. A CT scan revealed extensive clot in her left brachial artery. Surgery was consulted and Dr. Cameron performed an atherectomy of her brachial artery with mu-ism of flow and function. This begs the question of a patent foramen ovale, which was made more prominent and dangerous because of the increased right-sided pressures due to her clot burden from the pulmonary thromboembolism. Dr. Palacios was consulted and recommended a retrievable IVC filter be placed by Dr. Cameron. Cardiology also wanted to perform a BRIE to determine the extent of her PFO. These were both performed without incident and the patient tolerated it well. She was switched over to oral anticoagulation and her activity level was gradually increased. Over the next couple days she improved and on the day of discharge, she stated that she felt "100% human again." Prior to discharge, another oxygen saturation was performed even with walking in the [place] on room air she only got down to about 94%. She did not want oxygen for p.r.n. use at home so she is discharged in good condition. She is instructed to take Eliquis 10 mg twice daily at 12 hour intervals for the next 4 to 5 days and then switch to 5 mg q.12 hours. She has follow up with Dr. Cameron for staple removal in of her surgical site in the left biceps area. At the time of discharge, she had resolving ecchymoses around that surgical wound. She also had underlying hematoma, which was fairly sizable but nontender, did not appear to be infected. The patient is aware that she can call at any time should any complications arise, and that we will need to arrange some follow up with Dr. Palacios. In addition, all of her anticoagulation studies in the hospital were negative and we may need to do some reasonably conservative investigation into the possibility of occult malignancy. cc: Fred Mora MD
--- NOTE | 2020-02-18 11:27 | HEMO/ONC PROGRESS NOTE ---
DATE: 02/18/2020 SUBJECTIVE: Ms. Davalos is doing very well this morning. She states she feels so much better. She is hoping to go home soon. She denies any complaints. She is getting around in her room on her own. She has no acute events overnight. OBJECTIVE: Vital Signs: Temperature 97.7 degrees, pulse rate 95, respiratory rate 14, blood pressure 127/70, and O2 saturation 98% on room air. She is in 0/10 pain. General: On physical exam, the patient is in no acute distress. HEENT: Sclerae anicteric. PERRLA. Oral mucosa is normal. Respiratory: Lung sounds are clear to auscultation. Normal respiratory effort. Cardiovascular: Normal S1 and S2. Heart rate and rhythm regular. Gastrointestinal: Abdomen is soft, nondistended, nontender. Neurological: Alert and oriented x3. No focal motor deficits noted. ASSESSMENT AND PLAN: Deep vein thromboses and bilateral pulmonary embolisms. The patient had an inferior vena cava filter placed during this hospitalization. The plan is to keep it in for about 3 months because it is a retrievable one. The patient will remain on Eliquis 10 mg twice a day. We will follow up with the patient next week for further evaluation and monitoring her anticoagulation. The patient is being discharged today. Dictated by HEBERT Daily for Crow Palacios MD cc: MD Fred Lopez MD MTDD
--- NOTE | 2020-02-18 12:41 | GENERAL SURGERY PROGRESS NOTE ---
DATE: 02/18/2020 SUBJECTIVE: No events. She is going home today. Bruising on her left arm, the swelling has decreased. Hand is well perfused. No lower extremity swelling. No fevers. No tachycardia. ASSESSMENT AND PLAN: A 59-year-old female status post left brachial artery thrombectomy and IVC filter. She can see me next Friday or for staple removal. She is on oral anticoagulation. We will remove her filter in 4 months. cc: MD Fred Rod MD
== END 2020-02-18 12:30 | disposition home or self-care (01) | DRG 166 ==
LOC: P.ED 21:27 → SUATTDRO 02-10 01:08 → 4N 02-10 01:08 → ICU 02-11 11:07 → 1N 02-16 11:32
PROVIDERS: ADMIT Internal Medicine; ATTEND Internal Medicine